=== PATIENT | male | born 1945 | race African-American/Black ===

== ENCOUNTER 2019-10-13 13:31 | Inpatient (IN) | payer OTHER, MEDICAID ==
[~2019-10-13] VITALS: Ht 175.3 cm; Wt 88.9 kg
[2019-10-13 14:08] VITALS: BP_SYST 153
[2019-10-13 16:29] LABS: BASOPHILS % (AUTO) 0.4 % (0.0-2.0); EOSINOPHILS # (AUTO) 0.2 K/uL (0.0-0.4); EOSINOPHILS % (AUTO) 2.1 % (0.0-4.0); HEMATOCRIT 41.5 % (36-54); HEMOGLOBIN 13.9 g/dL (14.0-18.0); LYMPHOCYTES % (AUTO) 35.6 % (20.5-51.5); MEAN CORPUSCULAR HEMOGLOBIN 33 pg (27-31); MEAN CORPUSCULAR HGB CONC 34 % (32-36); MEAN CORPUSCULAR VOLUME 99 fL (79.0-98.0); MONOCYTES # (AUTO) 0.6 K/uL (0.0-1.0); MONOCYTES % (AUTO) 7.5 % (1.7-9.3); NEUTROPHILS # (AUTO) 4.6 K/uL (1.8-7.7); NEUTROPHILS % (AUTO) 54.4 % (40.0-70.0); PLATELET COUNT (AUTO) 216 K/uL (130-430); RED BLOOD CELL COUNT(AUTO) 4.19 MIL/uL (4.2-6.2); RED CELL DISTRIBUTION WIDTH 15.3 % (9.0-15.0); WHITE BLOOD COUNT (AUTO) 8.4 K/uL (4.8-10.8)
[2019-10-13 16:30] LABS: ANION GAP 4 (5-15); CALCIUM 10.7 mg/dL (8.4-11.0); CHLORIDE 99 mmol/L (98-107); CREATININE 6.83 mg/dL (0.55-1.30); GLUCOSE 114 mg/dL (70-99); POTASSIUM 4.3 mmol/L (3.5-5.1); SODIUM SERUM 137 mmol/L (136-145); UREA NITROGEN, BLOOD 23 mg/dL (8-21)
[2019-10-13 16:34] LABS: PROTHROMBIN TIME 9.8 SECS (9.5-12.5)
[2019-10-13 16:45] LABS: ALANINE AMINOTRANSFERASE 18 U/L (12-78); ALBUMIN 3.4 g/dL (3.4-4.8); ASPARTATE AMINOTRANSFERASE 19 U/L (10-37); TOTAL BILIRUBIN 0.3 mg/dL (0.0-1.0)
[2019-10-13] MEDS ORDERED: VANCOMYCIN HCL 1,000 MG in NS 250 ML IV ONE (17:00)
[2019-10-13] MEDS ORDERED: NACL 0.9% 1,000 ML IV ONE (17:00)
[2019-10-13] MEDS ORDERED: VANCOMYCIN HCL 1000 MG/VIAL IV ONE (19:01)
[2019-10-13] MEDS ORDERED: ASPIRIN 81 MG TABLET(ECOTRIN) PO ONE (20:45)
[2019-10-13] MEDS ORDERED: HYDROmorphone 1 MG INJ. 1 MG/ML AMPUL IVP PRN (21:00)
[2019-10-13] MEDS ORDERED: ATORVASTATIN 20 MG TABLET PO SCH (21:00)
[2019-10-13] MEDS ORDERED: CLOPIDOGREL BISULFATE 75 MG TABLET PO SCH (21:15)
[2019-10-13] MEDS ORDERED: KETOROLAC TROMETHAMINE 30 MG VIAL IVP PRN (21:15)
[2019-10-13 21:44] VITALS: BP_SYST 151
[2019-10-13] MEDS: CLOPIDOGREL BISULFATE 75 MG TABLET PO SCH (22:15)
[2019-10-13] MEDS: ATORVASTATIN 20 MG TABLET PO SCH (22:16)
[2019-10-14 01:49] VITALS: BP_SYST 106
[2019-10-14 05:59] LABS: ANION GAP 7 (5-15); CALCIUM 9.8 mg/dL (8.4-11.0); CHLORIDE 100 mmol/L (98-107); GLUCOSE 84 mg/dL (70-99); SODIUM SERUM 138 mmol/L (136-145); UREA NITROGEN, BLOOD 26 mg/dL (8-21)
[2019-10-14 06:33] LABS: BASOPHILS % (AUTO) 0.5 % (0.0-2.0); EOSINOPHILS # (AUTO) 0.2 K/uL (0.0-0.4); HEMATOCRIT 36.5 % (36-54); HEMOGLOBIN 12.2 g/dL (14.0-18.0); LYMPHOCYTES # (AUTO) 2.7 K/uL (1.0-5.5); LYMPHOCYTES % (AUTO) 46.3 % (20.5-51.5); MEAN CORPUSCULAR HEMOGLOBIN 33 pg (27-31); MEAN CORPUSCULAR HGB CONC 34 % (32-36); MEAN CORPUSCULAR VOLUME 98 fL (79.0-98.0); MONOCYTES # (AUTO) 0.4 K/uL (0.0-1.0); MONOCYTES % (AUTO) 6.7 % (1.7-9.3); NEUTROPHILS # (AUTO) 2.5 K/uL (1.8-7.7); NEUTROPHILS % (AUTO) 42.5 % (40.0-70.0); PLATELET COUNT (AUTO) 215 K/uL (130-430); RED BLOOD CELL COUNT(AUTO) 3.74 MIL/uL (4.2-6.2); RED CELL DISTRIBUTION WIDTH 15.3 % (9.0-15.0); WHITE BLOOD COUNT (AUTO) 5.9 K/uL (4.8-10.8)
[2019-10-14 06:40] LABS: CREATININE 7.73 mg/dL (0.55-1.30)
[2019-10-14 07:03] LABS: C-REACTIVE PROTEIN QUANT 0.5 mg/dL (0-0.5)
[2019-10-14 08:00] VITALS: BP_SYST 121
[2019-10-14 08:16] LABS: ERYTHROCYTE SEDIMENTATION RATE 24 MM/HR (0-15)
[2019-10-14] MEDS: CLOPIDOGREL BISULFATE 75 MG TABLET PO SCH (08:41)
[2019-10-14] MEDS: ATORVASTATIN 20 MG TABLET PO SCH (08:41)
[2019-10-14] MEDS ORDERED: CLOPIDOGREL BISULFATE 75 MG TABLET PO SCH (10:30)
[2019-10-14 12:20] VITALS: BP_SYST 100
[2019-10-14 16:15] VITALS: BP_SYST 122
[2019-10-14 19:31] VITALS: BP_SYST 98
[2019-10-15 00:14] VITALS: BP_SYST 128
[2019-10-15 07:07] LABS: BASOPHILS % (AUTO) 0.4 % (0.0-2.0); EOSINOPHILS # (AUTO) 0.2 K/uL (0.0-0.4); EOSINOPHILS % (AUTO) 3.3 % (0.0-4.0); HEMATOCRIT 38.5 % (36-54); HEMOGLOBIN 12.8 g/dL (14.0-18.0); LYMPHOCYTES # (AUTO) 2.8 K/uL (1.0-5.5); LYMPHOCYTES % (AUTO) 41.1 % (20.5-51.5); MEAN CORPUSCULAR HEMOGLOBIN 33 pg (27-31); MEAN CORPUSCULAR HGB CONC 33 % (32-36); MEAN CORPUSCULAR VOLUME 99 fL (79.0-98.0); MONOCYTES # (AUTO) 0.5 K/uL (0.0-1.0); NEUTROPHILS # (AUTO) 3.3 K/uL (1.8-7.7); NEUTROPHILS % (AUTO) 48.2 % (40.0-70.0); PLATELET COUNT (AUTO) 207 K/uL (130-430); RED BLOOD CELL COUNT(AUTO) 3.91 MIL/uL (4.2-6.2); RED CELL DISTRIBUTION WIDTH 14.8 % (9.0-15.0); WHITE BLOOD COUNT (AUTO) 6.8 K/uL (4.8-10.8)
[2019-10-15 07:34] LABS: ANION GAP 4 (5-15); C-REACTIVE PROTEIN QUANT 0.9 mg/dL (0-0.5); CALCIUM 9.5 mg/dL (8.4-11.0); CHLORIDE 103 mmol/L (98-107); CREATININE 6.68 mg/dL (0.55-1.30); GLUCOSE 87 mg/dL (70-99); POTASSIUM 4.1 mmol/L (3.5-5.1); SODIUM SERUM 137 mmol/L (136-145); UREA NITROGEN, BLOOD 19 mg/dL (8-21); VANCOMYCIN,RANDOM 9.5 ug/mL
[2019-10-15 08:06] VITALS: BP_SYST 120
[2019-10-15] MEDS: ATORVASTATIN 20 MG TABLET PO SCH (08:57)
[2019-10-15] MEDS: CLOPIDOGREL BISULFATE 75 MG TABLET PO SCH (08:57)
[2019-10-15 10:35] LABS: ERYTHROCYTE SEDIMENTATION RATE 25 MM/HR (0-15)
[2019-10-15] MEDS ORDERED: VANCOMYCIN HCL 750 MG in NS 250 ML IV ONE (11:00)
[2019-10-15] MEDS ORDERED: VANCOMYCIN HCL 1,000 MG in NS 250 ML IV ONE (11:00)
[2019-10-15 12:14] VITALS: BP_SYST 141
[2019-10-15 12:24] VITALS: BP_SYST 141
== END 2019-10-15 16:45 | DRG 562 ==
LOC: SED 13:31 → STU 17:43 → SMU 10-15 14:29
PROVIDERS: ADMIT Internal Medicine; ATTEND Internal Medicine
PROC: 5A1D70Z Performance of Urinary Filtration, Intermittent, Less than 6 Hours Per Day (ICD-10-PCS; principal; 2019-10-14)
DX: S92.422A Displaced fracture of distal phalanx of left great toe, initial encounter for closed fracture (principal); N18.6 End stage renal disease; I12.0 Hypertensive chronic kidney disease with stage 5 chronic kidney disease or end stage renal disease; E11.22 Type 2 diabetes mellitus with diabetic chronic kidney disease; E11.42 Type 2 diabetes mellitus with diabetic polyneuropathy; X58.XXXA Exposure to other specified factors, initial encounter; L03.032 Cellulitis of left toe; E11.51 Type 2 diabetes mellitus with diabetic peripheral angiopathy without gangrene; Z79.4 Long term (current) use of insulin; Z87.891 Personal history of nicotine dependence; Z89.511 Acquired absence of right leg below knee; Z89.611 Acquired absence of right leg above knee; Z99.2 Dependence on renal dialysis; Z88.6 Allergy status to analgesic agent; Z88.8 Allergy status to other drugs, medicaments and biological substances; Y93.89 Activity, other specified; Y92.89 Other specified places as the place of occurrence of the external cause; Y99.8 Other external cause status
CPT/HCPCS: 36415; 71045; 80048; 80053; 80061; 80202-TC; 83036; 83605; 83735-TC; 84484; 85025; 85610-TC; 85651-TC; 85730-TC; 86140; 87040-TC; 87081; 90935; 93005; 93922; 96365; 96366; 99285; G0378; J3370; J7030; J7050

== ENCOUNTER 2019-11-16 07:36 | Emergency (ER) | payer OTHER, MEDICAID ==
[~2019-11-16] VITALS: Ht 177.8 cm; Wt 108.9 kg
[2019-11-16 07:36] VITALS: BP_SYST 133
--- NOTE | 2019-11-16 07:36 | NUR ---
Patient to ER bed 6 to gown for evaluation. Side rails up. Report given to ELPIDIO Downs.
--- NOTE | 2019-11-16 07:40 | NUR ---
Patient presents to ER C/O right DVT. Patient BIB BLS from [facility]. Patient A&Ox3, cap refill <3, pain 0/10, denies N/V/D. Patient states he has had intermittent pain 8/10-10/10 for 2 weeks to left great toe.
--- NOTE | 2019-11-16 07:53 | NUR ---
ER Dr. Fairchild at bedside examining patient.
--- NOTE | 2019-11-16 08:00 | NUR ---
Provider Calling: Dr. Stephanie Storm Reason for Call: Placed Call to Dr. Storm for Dr. Fairchild. Orders? Dr. Fairchild to order Comments: Does ER need to call back Provider? no
--- NOTE | 2019-11-16 08:30 | NUR ---
Radiology at bedside for portable x-rays.
[2019-11-16 09:21] LABS: BASOPHILS # (AUTO) 0.1 K/uL (0.0-0.2); BASOPHILS % (AUTO) 0.8 % (0.0-2.0); EOSINOPHILS # (AUTO) 0.2 K/uL (0.0-0.4); HEMATOCRIT 37.8 % (36-54); HEMOGLOBIN 12.8 g/dL (14.0-18.0); LYMPHOCYTES # (AUTO) 2.9 K/uL (1.0-5.5); LYMPHOCYTES % (AUTO) 37.9 % (20.5-51.5); MEAN CORPUSCULAR HEMOGLOBIN 34 pg (27-31); MEAN CORPUSCULAR HGB CONC 34 % (32-36); MEAN CORPUSCULAR VOLUME 99 fL (79.0-98.0); MONOCYTES # (AUTO) 0.5 K/uL (0.0-1.0); MONOCYTES % (AUTO) 6.3 % (1.7-9.3); NEUTROPHILS # (AUTO) 3.9 K/uL (1.8-7.7); PLATELET COUNT (AUTO) 370 K/uL (130-430); RED BLOOD CELL COUNT(AUTO) 3.83 MIL/uL (4.2-6.2); RED CELL DISTRIBUTION WIDTH 14.4 % (9.0-15.0); WHITE BLOOD COUNT (AUTO) 7.6 K/uL (4.8-10.8)
[2019-11-16 09:44] LABS: ANION GAP 4 (5-15); CALCIUM 9.5 mg/dL (8.4-11.0); CHLORIDE 96 mmol/L (98-107); GLUCOSE 80 mg/dL (70-99); POTASSIUM 4.4 mmol/L (3.5-5.1); SODIUM SERUM 134 mmol/L (136-145); UREA NITROGEN, BLOOD 22 mg/dL (8-21)
[2019-11-16 09:58] LABS: ALANINE AMINOTRANSFERASE 27 U/L (12-78); ALBUMIN 3.3 g/dL (3.4-4.8); ASPARTATE AMINOTRANSFERASE 21 U/L (10-37); TOTAL BILIRUBIN 0.6 mg/dL (0.0-1.0)
--- NOTE | 2019-11-16 11:37 | NUR ---
called [facility] for transport, spoke to Juan. 30 min ETA
--- NOTE | 2019-11-16 11:55 | NUR ---
Patient to be transpoerted home to [facility]. Report called to Guilherme MAGALLANES at receiving facility. [facility] service has been called for transfer. ETA is 30 min.
[2019-11-16 12:10] VITALS: BP_SYST 109
--- NOTE | 2019-11-16 12:10 | NUR ---
Patient given written and verbal discharge instructions and verbalizes understanding. ER MD discussed with patient the results and treatment provided. Patient in stable condition. ID arm band removed. No Rx given. Patient educated on pain management and to follow up with PMD. Pain Scale 0/10 . Opportunity for questions provided and answered. report given to Emilee Vanegas RN Sent via ambulance: [facility], report to Linda Mullins EMT
== END 2019-11-16 12:10 | disposition home or self-care (01) ==
LOC: SED 07:36
DX: M79.675 Pain in left toe(s) (principal); I10 Essential (primary) hypertension; Z86.73 Personal history of transient ischemic attack (TIA), and cerebral infarction without residual deficits; N28.9 Disorder of kidney and ureter, unspecified; Z88.6 Allergy status to analgesic agent; Z88.8 Allergy status to other drugs, medicaments and biological substances
CPT/HCPCS: 36415; 71045; 80053; 84484; 85025; 93005; 99284

== ENCOUNTER 2020-01-26 09:38 | Inpatient (IN) | payer OTHER, MEDICAID ==
[~2020-01-26] VITALS: Ht 172.7 cm; Wt 81.4 kg
[2020-01-26 09:47] VITALS: BP_SYST 147
[2020-01-26 10:46] LABS: BASOPHILS % (AUTO) 0.6 % (0.0-2.0); EOSINOPHILS # (AUTO) 0.1 K/uL (0.0-0.4); EOSINOPHILS % (AUTO) 1.6 % (0.0-4.0); LYMPHOCYTES # (AUTO) 2.2 K/uL (1.0-5.5); LYMPHOCYTES % (AUTO) 27.2 % (20.5-51.5); MEAN CORPUSCULAR HEMOGLOBIN 34 pg (27-31); MEAN CORPUSCULAR HGB CONC 33 % (32-36); MEAN CORPUSCULAR VOLUME 101 fL (79.0-98.0); MONOCYTES # (AUTO) 0.5 K/uL (0.0-1.0); MONOCYTES % (AUTO) 6.2 % (1.7-9.3); NEUTROPHILS # (AUTO) 5.2 K/uL (1.8-7.7); NEUTROPHILS % (AUTO) 64.4 % (40.0-70.0); PLATELET COUNT (AUTO) 305 K/uL (130-430); RED BLOOD CELL COUNT(AUTO) 3.87 MIL/uL (4.2-6.2); RED CELL DISTRIBUTION WIDTH 13.4 % (9.0-15.0); WHITE BLOOD COUNT (AUTO) 8.1 K/uL (4.8-10.8)
[2020-01-26 10:50] LABS: ANION GAP 7 (5-15); CHLORIDE 101 mmol/L (98-107); CREATININE 4.79 mg/dL (0.55-1.30); GLUCOSE 94 mg/dL (70-99); POTASSIUM 3.7 mmol/L (3.5-5.1); SODIUM SERUM 140 mmol/L (136-145); UREA NITROGEN, BLOOD 12 mg/dL (8-21)
[2020-01-26 11:00] LABS: ALANINE AMINOTRANSFERASE 18 U/L (12-78); ALBUMIN 2.6 g/dL (3.4-4.8); ASPARTATE AMINOTRANSFERASE 20 U/L (10-37); TOTAL BILIRUBIN 0.3 mg/dL (0.0-1.0)
[2020-01-26 11:07] LABS: PROTHROMBIN TIME 10.5 SECS (9.5-12.5)
[2020-01-26] MEDS ORDERED: ACET325C3 PO (11:57)
[2020-01-26] MEDS ORDERED: DOCU-144 PO (11:58)
[2020-01-26] MEDS ORDERED: ASCO500T20 PO (11:58)
[2020-01-26] MEDS ORDERED: CARV6.2554 PO (11:58)
[2020-01-26] MEDS ORDERED: LIP20 PO (11:58)
[2020-01-26] MEDS ORDERED: ASPI-1153 PO (11:58)
[2020-01-26] MEDS ORDERED: SULF1TAB48 PO (11:58)
[2020-01-26] MEDS ORDERED: traMADol HCL HCL 50 MG TABLET (ULTRAM) PO ONE ×2 (12:00)
[2020-01-26] MEDS ORDERED: GUAI10LI PO (12:02)
[2020-01-26] MEDS ORDERED: GABA800T PO (12:02)
[2020-01-26] MEDS ORDERED: HYDR-4038 PO (12:02)
[2020-01-26] MEDS ORDERED: BISA-79 PO (12:02)
[2020-01-26] MEDS ORDERED: INSU100V9 SQ (12:09)
[2020-01-26] MEDS ORDERED: LISI-600 PO (12:09)
[2020-01-26] MEDS ORDERED: CLOP75TA32 PO (12:09)
[2020-01-26] MEDS ORDERED: HYDR-4274 PO (12:09)
[2020-01-26] MEDS ORDERED: B CO1CAP5 PO (12:09)
[2020-01-26] MEDS ORDERED: SSNOVOLOG SUBCUT (12:09)
[2020-01-26] MEDS ORDERED: NIFE60TA65 PO (12:09)
[2020-01-26] MEDS ORDERED: LACT1CAP61 PO (12:09)
[2020-01-26] MEDS ORDERED: SENN8.6T19 PO (12:18)
[2020-01-26] MEDS ORDERED: DICL100G19 TP (12:18)
[2020-01-26] MEDS ORDERED: RESEYE OP (12:18)
[2020-01-26] MEDS ORDERED: TRAM-350 PO (12:18)
[2020-01-26] MEDS ORDERED: SEVE800T8 PO (12:18)
[2020-01-26] MEDS ORDERED: KETOROLAC TROMETHAMINE 30 MG VIAL IVP ONE ×2 (13:00)
[2020-01-26 13:12] VITALS: BP_SYST 151
[2020-01-26] MEDS ORDERED: VANCOMYCIN HCL 1,000 MG in NS 250 ML IV ONE (14:00)
[2020-01-26 17:06] VITALS: BP_SYST 111
[2020-01-26 20:00] VITALS: BP_SYST 117
[2020-01-26] MEDS ORDERED: INSULIN LISPRO SLIDING SCALE 100 UNITS/ML VIAL (humaLOG) SUBCUT PRN (21:15)
[2020-01-26] MEDS ORDERED: BISACODYL 5 MG TABLET.DR (DULCOLAX) PO SCH (21:30)
[2020-01-26] MEDS ORDERED: hydrALAZINE HCL 25 MG TABLET PO SCH (21:30)
[2020-01-26] MEDS: GABAPENTIN 400 MG CAPSULE PO SCH (22:00)
[2020-01-27 00:46] VITALS: BP_SYST 147
[2020-01-27] MEDS: GABAPENTIN 400 MG CAPSULE PO SCH ×3 (05:47→21:14)
[2020-01-27 08:27] VITALS: BP_SYST 139
[2020-01-27] MEDS: SEVELAMER CARBONATE 800 MG TABLET PO SCH ×2 (08:59→18:00)
[2020-01-27] MEDS ORDERED: HEPARIN SODIUM,PORCINE 5000 UNITS/ML VIAL MC ONE ×2 (11:19→11:30)
[2020-01-27] MEDS: HEPARIN SODIUM,PORCINE 5000 UNITS/ML VIAL SUBCUT SCH ×2 (11:50→21:17)
[2020-01-27] MEDS: DOCUSATE SODIUM 100 MG CAPSULE PO SCH (11:51)
[2020-01-27] MEDS: ASCORBIC ACID 500 MG TABLET PO SCH (11:53)
[2020-01-27] MEDS: SENNOSIDES 8.6 MG TABLET PO SCH ×3 (11:53→21:15)
[2020-01-27] MEDS: CARVEDILOL 6.25 MG TABLET (COREG) PO SCH ×2 (11:54→21:15)
[2020-01-27] MEDS: LISINOPRIL 20 MG TABLET PO SCH (11:55)
[2020-01-27] MEDS: NIFEDIPINE 30 MG TAB.ER.24 PO SCH (11:55)
[2020-01-27] MEDS: cycloSPORINE 0.05%, 0.4 ML OPHTHALMIC EMULSION DROPERETTE OP SCH (11:58)
[2020-01-27 12:24] VITALS: BP_SYST 100
[2020-01-27 16:44] VITALS: BP_SYST 120
[2020-01-27 19:00] VITALS: BP_SYST 120
[2020-01-27 20:00] VITALS: BP_SYST 120
[2020-01-27] MEDS ORDERED: ATORVASTATIN 20 MG TABLET PO SCH (21:00)
[2020-01-28 00:59] VITALS: BP_SYST 105
[2020-01-28] MEDS: GABAPENTIN 400 MG CAPSULE PO SCH ×3 (05:57→13:53)
[2020-01-28 08:31] LABS: BASOPHILS % (AUTO) 0.3 % (0.0-2.0); EOSINOPHILS # (AUTO) 0.3 K/uL (0.0-0.4); EOSINOPHILS % (AUTO) 3.7 % (0.0-4.0); HEMATOCRIT 35.1 % (36-54); HEMOGLOBIN 11.7 g/dL (14.0-18.0); LYMPHOCYTES # (AUTO) 2.1 K/uL (1.0-5.5); LYMPHOCYTES % (AUTO) 27.7 % (20.5-51.5); MEAN CORPUSCULAR HEMOGLOBIN 33 pg (27-31); MEAN CORPUSCULAR HGB CONC 33 % (32-36); MEAN CORPUSCULAR VOLUME 100 fL (79.0-98.0); MONOCYTES # (AUTO) 0.6 K/uL (0.0-1.0); NEUTROPHILS # (AUTO) 4.6 K/uL (1.8-7.7); NEUTROPHILS % (AUTO) 60.3 % (40.0-70.0); PLATELET COUNT (AUTO) 278 K/uL (130-430); RED BLOOD CELL COUNT(AUTO) 3.52 MIL/uL (4.2-6.2); RED CELL DISTRIBUTION WIDTH 13.2 % (9.0-15.0); WHITE BLOOD COUNT (AUTO) 7.6 K/uL (4.8-10.8)
[2020-01-28] MEDS: SEVELAMER CARBONATE 800 MG TABLET PO SCH (08:44)
[2020-01-28 08:47] LABS: ANION GAP 7 (5-15); CALCIUM 9.4 mg/dL (8.4-11.0); CHLORIDE 103 mmol/L (98-107); CREATININE 5.22 mg/dL (0.55-1.30); GLUCOSE 94 mg/dL (70-99); POTASSIUM 3.2 mmol/L (3.5-5.1); SODIUM SERUM 134 mmol/L (136-145); UREA NITROGEN, BLOOD 12 mg/dL (8-21); VANCOMYCIN,RANDOM 9.5 ug/mL
[2020-01-28 08:49] VITALS: BP_SYST 112
[2020-01-28] MEDS: LISINOPRIL 20 MG TABLET PO SCH (09:33)
[2020-01-28] MEDS: NIFEDIPINE 30 MG TAB.ER.24 PO SCH (09:33)
[2020-01-28] MEDS: ASCORBIC ACID 500 MG TABLET PO SCH (09:34)
[2020-01-28] MEDS: SENNOSIDES 8.6 MG TABLET PO SCH ×2 (09:34→14:02)
[2020-01-28] MEDS: DOCUSATE SODIUM 100 MG CAPSULE PO SCH (09:34)
[2020-01-28] MEDS: CARVEDILOL 6.25 MG TABLET (COREG) PO SCH (09:34)
[2020-01-28] MEDS: HEPARIN SODIUM,PORCINE 5000 UNITS/ML VIAL SUBCUT SCH (09:36)
[2020-01-28] MEDS: cycloSPORINE 0.05%, 0.4 ML OPHTHALMIC EMULSION DROPERETTE OP SCH (09:42)
[2020-01-28 12:44] VITALS: BP_SYST 114
[2020-01-28] MEDS ORDERED: POTASSIUM CHLORIDE 20 MEQ/PKT PACKET PO ONE (13:30)
[2020-01-28] MEDS ORDERED: POTASSIUM CHLORIDE 20 MEQ TAB.PRT.SR PO ONE (13:30)
[2020-01-28] MEDS ORDERED: VANCOMYCIN HCL 1,000 MG in NS 250 ML IV ONE (14:00)
[2020-01-28 16:00] VITALS: BP_SYST 115
== END 2020-01-28 16:12 | DRG 637 ==
LOC: SED 09:38 → SMU 13:46
PROVIDERS: ADMIT Internal Medicine; ATTEND Internal Medicine
PROC: 5A1D70Z Performance of Urinary Filtration, Intermittent, Less than 6 Hours Per Day (ICD-10-PCS; principal; 2020-01-27)
DX: E11.621 Type 2 diabetes mellitus with foot ulcer (principal); E43 Unspecified severe protein-calorie malnutrition; E11.52 Type 2 diabetes mellitus with diabetic peripheral angiopathy with gangrene; L97.429 Non-pressure chronic ulcer of left heel and midfoot with unspecified severity; I96 Gangrene, not elsewhere classified; I12.0 Hypertensive chronic kidney disease with stage 5 chronic kidney disease or end stage renal disease; N18.6 End stage renal disease; E11.22 Type 2 diabetes mellitus with diabetic chronic kidney disease; E11.40 Type 2 diabetes mellitus with diabetic neuropathy, unspecified; E78.5 Hyperlipidemia, unspecified; F17.210 Nicotine dependence, cigarettes, uncomplicated; M19.90 Unspecified osteoarthritis, unspecified site; E11.42 Type 2 diabetes mellitus with diabetic polyneuropathy; Z79.4 Long term (current) use of insulin; Z99.2 Dependence on renal dialysis; Z79.899 Other long term (current) drug therapy; Z89.511 Acquired absence of right leg below knee; Z88.8 Allergy status to other drugs, medicaments and biological substances; Z88.5 Allergy status to narcotic agent
CPT/HCPCS: 36415; 71045; 80048; 80053; 80202-TC; 82140-TC; 82962; 83605; 83880; 84439; 84484; 85025; 85610-TC; 87040-TC; 87081; 90935; 93005; 93922; 99285; J0696; J1644; J3370; J7030; J7050; J7060

== ENCOUNTER 2020-03-02 01:12 | Inpatient (IN) | payer OTHER, MEDICAID, SELFPAY ==
[2020-03-02] VITALS (20 sets, daily range): BP systolic 94–188
[~2020-03-02] VITALS: Ht 180.3 cm; Wt 72.6 kg
[~2020-03-02 01:12] MED LIST: ACET325C3 PO; ASCO500T20 PO; ASPI-1153 PO; B CO1CAP5 PO; BISA-79 PO; CARV6.2554 PO; CLOP75TA32 PO; DICL100G19 TP; DOCU-144 PO; GABA800T PO; GUAI10LI PO; HYDR-4038 PO; HYDR-4274 PO; INSU100V9 SQ; LACT1CAP61 PO; LIP20 PO; LISI-600 PO; NIFE60TA65 PO; RESEYE OP; SENN8.6T19 PO; SEVE800T8 PO; SSNOVOLOG SUBCUT; TRAM-350 PO
--- NOTE | 2020-03-02 01:20 | NUR ---
Placed in room 6 . Placed on youth nutritional monitor, blood pressure machine and pulse oximeter. To gown for exam. Side rails up. Report given to ALEXIA MAGALLANES/CAMRON MAGALLANES.
[2020-03-02] MEDS ORDERED: DEXTROSE 50% JECT 50 ML DISP.SYRIN IVP ONE (01:30)
--- NOTE | 2020-03-02 01:30 | NUR ---
Patient BIB EMS. C/O hypoglycemia x today. Per EMS reported staff found patient unconscious, called 911, BS 34 at the scene, given Glucagon 1 GM IM. Awake, confused, reponse to pain, BS 42, permacath right chest, AKA right side, left foot gangrene, cool, clammy , AV shut left upper arm, HR 54, Oxygen sat 88 % RA. Hx DM,ESRD, Osteoarthritis, HTN, Peripheral neuropathy.
--- NOTE | 2020-03-02 01:48 | NUR ---
X-ray at bedside.
--- NOTE | 2020-03-02 01:53 | NUR ---
BS 298, report Dr. Kwan.
[2020-03-02] MEDS ORDERED: NS 500 ML IV ONE (02:00)
[2020-03-02 02:03] LABS: BASOPHILS % (AUTO) 0.3 % (0.0-2.0); EOSINOPHILS # (AUTO) 0.1 K/uL (0.0-0.4); EOSINOPHILS % (AUTO) 1.5 % (0.0-4.0); HEMATOCRIT 37.5 % (36-54); HEMOGLOBIN 12.6 g/dL (14.0-18.0); LYMPHOCYTES # (AUTO) 1.2 K/uL (1.0-5.5); LYMPHOCYTES % (AUTO) 15.2 % (20.5-51.5); MEAN CORPUSCULAR HEMOGLOBIN 33 pg (27-31); MEAN CORPUSCULAR HGB CONC 34 % (32-36); MEAN CORPUSCULAR VOLUME 99 fL (79.0-98.0); MONOCYTES # (AUTO) 0.6 K/uL (0.0-1.0); MONOCYTES % (AUTO) 7.9 % (1.7-9.3); NEUTROPHILS # (AUTO) 6.1 K/uL (1.8-7.7); NEUTROPHILS % (AUTO) 75.1 % (40.0-70.0); PLATELET COUNT (AUTO) 497 K/uL (130-430); RED CELL DISTRIBUTION WIDTH 14.7 % (9.0-15.0); WHITE BLOOD COUNT (AUTO) 8.1 K/uL (4.8-10.8)
--- NOTE | 2020-03-02 02:05 | NUR ---
at bedside -re-evaluate, Temp 94.[address] Kwan, Oxygen sat 88 % RA, given oxygen canula 4 L/min per verbal order.
--- NOTE | 2020-03-02 02:05 | NUR ---
Note dale in ED - 03/02/20 at 0605 by SDEDCM2 at [facility] -re-evaluate, Temp 94.[address] Kwan, Oxygen sat 88 % RA, given oxygen canula 4 L/min.
[2020-03-02 02:20] LABS: ANION GAP 6 (5-15); CALCIUM 9.4 mg/dL (8.4-11.0); CHLORIDE 102 mmol/L (98-107); CREATININE 7.36 mg/dL (0.55-1.30); GLUCOSE 63 mg/dL (70-99); POTASSIUM 3.4 mmol/L (3.5-5.1); SODIUM SERUM 140 mmol/L (136-145); UREA NITROGEN, BLOOD 24 mg/dL (8-21)
[2020-03-02 02:22] LABS: INR 1.1 (0.80-1.20); PROTHROMBIN TIME 10.9 SECS (9.5-12.5)
[2020-03-02] MEDS ORDERED: VANCOMYCIN HCL 1,000 MG in NS 250 ML IV ONE (02:30)
[2020-03-02] MEDS ORDERED: PIPERACILLIN/TAZOBACTAM 2.25 GM in NS 50 ML IV ONE (02:30)
[2020-03-02 02:33] LABS: ALANINE AMINOTRANSFERASE 11 U/L (12-78); ALBUMIN 2.3 g/dL (3.4-4.8); ASPARTATE AMINOTRANSFERASE 22 U/L (10-37); TOTAL BILIRUBIN 0.4 mg/dL (0.0-1.0)
[2020-03-02] MEDS ORDERED: NACL 0.9% 1,000 ML IV ONE (02:45)
--- NOTE | 2020-03-02 02:48 | NUR ---
Dr. Kwan at bedside for Ultrasound.
[2020-03-02] MEDS ORDERED: VANCOMYCIN HCL 1000 MG/VIAL IV ONE (02:59)
[2020-03-02] MEDS ORDERED: PIPERACILLIN/TAZOBACTAM 2.25 GM VIAL IV ONE (02:59)
--- NOTE | 2020-03-02 03:00 | NUR ---
BS 229 , reported Dr. Kwan.
[2020-03-02] MEDS ORDERED: TRAM100T34 PO (03:31)
[2020-03-02] MEDS ORDERED: GUAI100S14 PO (03:31)
[2020-03-02] MEDS ORDERED: BISA10SU61 RC (03:31)
[2020-03-02] MEDS ORDERED: MOM PO (03:31)
--- NOTE | 2020-03-02 03:32 | NUR ---
Medication reconciliation completed with information provided by GEOVANY PITTMAN. Any prior medication reconciliation on file was reviewed and corrected.
--- NOTE | 2020-03-02 03:42 | NUR ---
Spoke to pipe supervisor, They advised , patient will be ER hold , pending staff in ICU.
--- NOTE | 2020-03-02 04:58 | NUR ---
Patient will be admitted to care of Dr. Storm. Admitted to ICU unit. Will go to room 2. Belongings list completed. Complete and up to date summary report printed. SBAR report to be given at bedside with opportunity for questions.
--- NOTE | 2020-03-02 05:01 | NUR ---
Transfer to ICU via ACLS protocol. Licensed nurse present. IV present no signs or symptoms of infiltration.
--- NOTE | 2020-03-02 05:30 | NUR ---
OPENING NOTE ER ADMIT. SBAR REPORT RECEIVED FROM JIGGER ARTISAN. CARE ASSUMED. PT LAYING IN BED. PT ANO X 4. PT ON 4L NC. O2 SATURATION 97%. SINUS BRADYCARDIA ON MONITOR. RADIAL PULSES NORMAL. LEFT PEDAL PULSES NORMAL. PT HAS BKA TO RIGHT LOWER EXTREMITY. PT HAS 20G RIGHT AC RUNNING VANCOMYCIN FROM ER. ABDOMEN SOFT NON DISTENDED. BOWEL SOUNDS ACTIVE IN ALL 4 QUADRANTS. PT INCONTINENT OF URINE. PT HAS NECROTIC ULCER TO LEFT GREAT TOE. RIGHT BKA. HEALED WOUND TO SACRAL AREA. BED LOCKED IN LOWEST POSITION. SAFETY PRECAUTIONS IN PLACE. CALL LIGHT WITHIN REACH. WILL CONTINUE TO MONITOR.
--- NOTE | 2020-03-02 06:09 | NUR ---
CONSULT FOR DR. Robbie SABILLON ORDERED BY DR. IGLESIAS DIALED: [phone] SPOKE TO: AMY
--- NOTE | 2020-03-02 06:13 | NUR ---
CONSULT FOR DR. BRAUN ORDERED BY DR. IGLESIAS DIALED: [phone] SPOKE TO: TUAN
[2020-03-02] MEDS ORDERED: NACL 0.9% 1,000 ML IV SCH (06:30)
--- NOTE | 2020-03-02 06:45 | NUR ---
RN UPDATE PT LAYING IN BED NO SIGNS OR SYMPTOMS OF DISTRESS. AWAITING COMPLETE ADMIT ORDERS FROM MD IGLESIAS. WILL CONTINUE TO MONITOR.
--- NOTE | 2020-03-02 07:15 | NUR ---
Received endorsement from Marianne CAMARA
[2020-03-02 07:23] LABS: BASOPHILS % (AUTO) 0.3 % (0.0-2.0); EOSINOPHILS % (AUTO) 0.4 % (0.0-4.0); HEMATOCRIT 38.5 % (36-54); HEMOGLOBIN 12.6 g/dL (14.0-18.0); LYMPHOCYTES # (AUTO) 1.3 K/uL (1.0-5.5); MEAN CORPUSCULAR HEMOGLOBIN 33 pg (27-31); MEAN CORPUSCULAR HGB CONC 33 % (32-36); MEAN CORPUSCULAR VOLUME 99 fL (79.0-98.0); MONOCYTES # (AUTO) 0.6 K/uL (0.0-1.0); MONOCYTES % (AUTO) 8.4 % (1.7-9.3); NEUTROPHILS # (AUTO) 4.9 K/uL (1.8-7.7); NEUTROPHILS % (AUTO) 71.9 % (40.0-70.0); PLATELET COUNT (AUTO) 335 K/uL (130-430); RED BLOOD CELL COUNT(AUTO) 3.88 MIL/uL (4.2-6.2); RED CELL DISTRIBUTION WIDTH 15.2 % (9.0-15.0); WHITE BLOOD COUNT (AUTO) 6.7 K/uL (4.8-10.8)
--- NOTE | 2020-03-02 07:30 | NUR ---
CLOSING NOTE PT LAYING IN BED. NO SIGNS OR SYMPTOMS OF DISTRESS NOTED. SBAR REPORT GIVEN TO YOUNG RN. CARE ENDORSED.
--- NOTE | 2020-03-02 08:15 | NUR ---
AM ASSESSMENT Placed patient on droplet (PUI) isolation. Pt lethargic A/O x 4 but awakens to verbal stimuli. PT noted that he receives dialysis M,W,F. Confirmed with Emilee Chanel Via DR. Guzman. Pt BNA on right let. Necrotic tissue on #1, #2 Toe. Sacrum old scar but intact. No complaints of pain but is complaining of being cold. Temp of 96.1F noted. Applied three layers of warm blankets. NS @ 75cc/hr.
--- NOTE | 2020-03-02 08:16 | NUR ---
Nutrition Update Saúl Score 13 noted. Pt admitted for sepsis & hypotension Diet: N/A BMI: 25.1 kg/m2 RD to follow per nutrition care standards. Addendum: 03/02/20 at [address] Correction: Diet: Renal Standard
--- NOTE | 2020-03-02 08:20 | NUR ---
PAGED PAGED CAMERON BILLS AT [phone] LEFT A VOICEMAIL.
[2020-03-02 08:55] LABS: CHLORIDE 102 mmol/L (98-107); SODIUM SERUM 133 mmol/L (136-145)
[2020-03-02 08:56] LABS: ANION GAP 7 (5-15); CALCIUM 8.5 mg/dL (8.4-11.0); CREATININE 7.42 mg/dL (0.55-1.30); GLUCOSE 201 mg/dL (70-99); UREA NITROGEN, BLOOD 26 mg/dL (8-21)
[2020-03-02 08:57] LABS: ALANINE AMINOTRANSFERASE 11 U/L (12-78); ASPARTATE AMINOTRANSFERASE 21 U/L (10-37); TOTAL BILIRUBIN 0.4 mg/dL (0.0-1.0)
[2020-03-02 08:58] LABS: CHOLESTEROL 50 mg/dL (<200); TRIGLYCERIDES 18 mg/dL (30-150)
[2020-03-02 08:59] LABS: HDL CHOLESTEROL 35 mg/dL (>45); LDL CHOLESTEROL 13 mg/dL (<100); LIPASE 320 U/L (73-393)
--- NOTE | 2020-03-02 09:00 | NUR ---
Placed allergy band on PT
[2020-03-02] MEDS ORDERED: ENOXAPARIN SODIUM 30 MG/0.3 ML SYRINGE SUBCUT ONE (09:15)
[2020-03-02 09:35] LABS: THYROID STIMULATING HORMONE 1.62 uIu/mL (0.34-4.82)
--- NOTE | 2020-03-02 10:00 | NUR ---
Dr Storm bedside. Orders received.
[2020-03-02] MEDS: PIPERACILLIN/TAZOBACTAM 2.25 GM in NS 50 ML IV SCH ×3 (10:16→19:14)
[2020-03-02] MEDS ORDERED: cycloSPORINE 0.05%, 0.4 ML OPHTHALMIC EMULSION DROPERETTE OP ONE (10:30)
[2020-03-02] MEDS ORDERED: CLOPIDOGREL BISULFATE 75 MG TABLET PO ONE (10:30)
[2020-03-02] MEDS ORDERED: DOCUSATE SODIUM 100 MG CAPSULE PO ONE (10:30)
[2020-03-02] MEDS ORDERED: ASCORBIC ACID 500 MG TABLET PO ONE (10:30)
[2020-03-02] MEDS ORDERED: ASPIRIN 81 MG TABLET(ECOTRIN) PO ONE (10:30)
[2020-03-02] MEDS ORDERED: BISACODYL 10 MG/SUPPOSITORY RC ONE (10:30)
--- NOTE | 2020-03-02 10:30 | NUR ---
Dr Ember Mojica bedside. Orders received.
[2020-03-02] MEDS ORDERED: GABAPENTIN 400 MG CAPSULE PO ONE (11:00)
--- NOTE | 2020-03-02 11:00 | NUR ---
Pt has CT w/o contrast of chest ordered. Advised by Dr Storm to coordinate with radiology to once PUI is complete. Confirmed with Bill at Radiology.
[2020-03-02] MEDS ORDERED: D5/0.45 NS 500 ML IV ONE (11:15)
[2020-03-02] MEDS: D5/0.45 NS 1,000 ML IV SCH (11:44)
[2020-03-02] MEDS: FAMOTIDINE PF 20 MG/2 ML VIAL IVP SCH (11:45)
[2020-03-02] MEDS: SEVELAMER CARBONATE 800 MG TABLET PO SCH ×2 (13:29→17:33)
--- NOTE | 2020-03-02 13:43 | NUR ---
Section Crews Activities Clerk: CASEWORK SUPERVISOR will make a call to ICU to conduct a DCPA and a Social Work interview CASEWORK SUPERVISOR called the two emergency contacts on the pts. facesheet, Delia Langley, daughter, at [phone] and pts. sister, Corry Odell at [phone]. There was no answer. CASEWORK SUPERVISOR called ICU and spoke to [employer] Blane and asked if Pt. was able to participate in an interview. CASEWORK SUPERVISOR stated if he was not able to that was ok. Blane consulted with Rn. After discussion, they were able to transfer phone call to Pt. Pt. was able to get through part of the DCPA however his Rn Gabriel got on the phone and stated pt. needed to rest. CASEWORK SUPERVISOR thanked him. CASEWORK SUPERVISOR tried called pts. sister, Sabas Odell again. She answered and was able to share some answers to CASEWORK SUPERVISOR's questions.She was very polite and helped with the rest of the assessment questions. She stated the plan was for pt. to return to [facility] once he is d/c. She stated they were trying to get him to a SNF closer to her. She resides in [place], however pt. did not want to go out to [place] at the time. Corry Odell expressed frustration stating she has been asking to speak to a DrGer in re. to pts. care and she has yet to do so. CASEWORK SUPERVISOR suggested she call the compliance representative dealer and ask to speak to a Rn or Dr. She stated she will try again. CASEWORK SUPERVISOR will remain available as needed.
--- NOTE | 2020-03-02 14:02 | NUR ---
HEALTH ASSISTANT ANDREW THE HEALTH ASSISTANT INFORMED ME THAT THE PATIENT'S SISTER WANTS TO SPEAK TO EITHER THE DOCTOR OR NURSE TO GET AN UPDATE ON THE PATIENTS STATUS.
--- NOTE | 2020-03-02 14:19 | NUR ---
SAÚL SCALE EVALUATION: Patient evaluated for a low Saúl score of 13. Patient was awake, alert, oriented and received in a Jason bed with an IsoFlex RYAN mattress with low air-loss therapy. Patient is unable to turn in bed independently. Skin assessment: 1. Sacral area: Scar tissue, present on admission. Recommend: Cover site with a Sacral foam dressing. Do not place patient flat on his back at any time. 2. Left Great Toe: Dry gangrene, present on admission. Site has 100% black eschar. No odor, no drainage. Dry, stable. Recommend: [place] gangrenous site with Betadine daily. Recommend reposition patient side to side only every 2 hours with pillow support and off-load pressure areas with pillows for pressure re-distribution. Elevate, off-load and float left heel and right residual limb with pillows. Use moisture barrier cream on buttocks and other moisture susceptible areas QID and as needed for soiling. Perform skin care and monitor skin integrity Q shift. Maintain patient on a low air-loss mattress.
[2020-03-02] MEDS ORDERED: HEPARIN SODIUM,PORCINE 5000 UNITS/ML VIAL MC ONE (16:15)
[2020-03-02] MEDS ORDERED: HEPARIN SODIUM,PORCINE 5000 UNITS/ML VIAL ONE (16:24)
[2020-03-02] MEDS ORDERED: VANCOMYCIN HCL 1 GM/NS PREMIX 250 ML IV ONE (18:30)
--- NOTE | 2020-03-02 20:00 | NUR ---
PAGED DR. IGLESIAS FOR ORDERS DIALED: [phone] (NO ANSWER LEFT VOICEMAIL) DIALED SECOND NUMBER: [phone] SPOKE TO: CUONG
--- NOTE | 2020-03-02 20:52 | NUR ---
PAGED DR. IGLESIAS FOR ORDERS DIALED: [phone] SPOKE TO: NO ANSWER
--- NOTE | 2020-03-02 21:28 | NUR ---
PAGED DR. IGLESIAS FOR ORDERS DIALED: [phone] (NO ANSWER LEFT VOICEMAIL) DIALED SECOND NUMBER: [phone] (NO ANSWER LEFT VOICEMAIL)
[2020-03-02] MEDS: ATORVASTATIN 20 MG TABLET PO SCH (21:37)
[2020-03-02] MEDS: GABAPENTIN 400 MG CAPSULE PO SCH (21:38)
[2020-03-02] MEDS: hydrALAZINE HCL 25 MG TABLET PO SCH (21:38)
[2020-03-02] MEDS: SENNOSIDES 8.6 MG TABLET PO SCH (21:38)
[2020-03-03] VITALS (14 sets, daily range): BP systolic 106–176
--- NOTE | 2020-03-03 00:30 | NUR ---
Endorsement provided to night RN using SBAR. Pt sleeping with no signs of distress. Bed locked and in lowest position. PT under droplet precautions.
--- NOTE | 2020-03-03 01:00 | NUR ---
CHANGE IN CARE Care assumed from Day RN. Pt resting quietly. No c/o SOB, or pain.
[2020-03-03] MEDS: PIPERACILLIN/TAZOBACTAM 2.25 GM in NS 50 ML IV SCH ×4 (03:01→21:00)
--- NOTE | 2020-03-03 04:30 | NUR ---
Opening Note Received plan of care via sbar from endorsing nurse Marina MAGALLANES. Completed patient round.
[2020-03-03 05:52] LABS: BASOPHILS # (AUTO) 0.1 K/uL (0.0-0.2); BASOPHILS % (AUTO) 0.6 % (0.0-2.0); EOSINOPHILS # (AUTO) 0.1 K/uL (0.0-0.4); EOSINOPHILS % (AUTO) 0.8 % (0.0-4.0); HEMATOCRIT 33.2 % (36-54); HEMOGLOBIN 11.1 g/dL (14.0-18.0); LYMPHOCYTES # (AUTO) 1.5 K/uL (1.0-5.5); LYMPHOCYTES % (AUTO) 15.7 % (20.5-51.5); MEAN CORPUSCULAR HEMOGLOBIN 32 pg (27-31); MEAN CORPUSCULAR HGB CONC 34 % (32-36); MEAN CORPUSCULAR VOLUME 96 fL (79.0-98.0); MONOCYTES # (AUTO) 0.5 K/uL (0.0-1.0); MONOCYTES % (AUTO) 5.4 % (1.7-9.3); NEUTROPHILS # (AUTO) 7.5 K/uL (1.8-7.7); NEUTROPHILS % (AUTO) 77.5 % (40.0-70.0); PLATELET COUNT (AUTO) 315 K/uL (130-430); RED BLOOD CELL COUNT(AUTO) 3.45 MIL/uL (4.2-6.2); RED CELL DISTRIBUTION WIDTH 14.7 % (9.0-15.0); WHITE BLOOD COUNT (AUTO) 9.7 K/uL (4.8-10.8)
[2020-03-03] MEDS: GABAPENTIN 400 MG CAPSULE PO SCH (06:00)
[2020-03-03 06:10] LABS: ALANINE AMINOTRANSFERASE 8 U/L (12-78); ALBUMIN 1.7 g/dL (3.4-4.8); ANION GAP 5 (5-15); ASPARTATE AMINOTRANSFERASE 16 U/L (10-37); CALCIUM 8.1 mg/dL (8.4-11.0); CHLORIDE 100 mmol/L (98-107); CREATININE 4.98 mg/dL (0.55-1.30); GLUCOSE 70 mg/dL (70-99); PHOSPHORUS 2.3 mg/dL (2.7-4.5); POTASSIUM 3.1 mmol/L (3.5-5.1); SODIUM SERUM 133 mmol/L (136-145); TOTAL BILIRUBIN 0.4 mg/dL (0.0-1.0); UREA NITROGEN, BLOOD 14 mg/dL (8-21)
[2020-03-03] MEDS: D5/0.45 NS 1,000 ML IV SCH ×2 (06:15→22:09)
--- NOTE | 2020-03-03 06:30 | NUR ---
Patient blood sugar 66. Patient is still responsive and AOX4. Following hypoglycemic protocol.
[2020-03-03] MEDS ORDERED: D5W 1,000 ML IV PRN ×2 (06:44)
[2020-03-03] MEDS ORDERED: GLUCOSE 15 GM GEL (in 37.5 GM TUBE) PO PRN ×2 (06:45)
[2020-03-03] MEDS ORDERED: DEXTROSE 50% JECT 50 ML DISP.SYRIN IVP PRN ×2 (06:45)
[2020-03-03] MEDS: cycloSPORINE 0.05%, 0.4 ML OPHTHALMIC EMULSION DROPERETTE OP SCH (09:02)
[2020-03-03] MEDS: DOCUSATE SODIUM 100 MG CAPSULE PO SCH (09:02)
[2020-03-03] MEDS: CLOPIDOGREL BISULFATE 75 MG TABLET PO SCH (09:02)
[2020-03-03] MEDS: SEVELAMER CARBONATE 800 MG TABLET PO SCH ×3 (09:03→16:25)
[2020-03-03] MEDS: ASPIRIN 81 MG TABLET(ECOTRIN) PO SCH (09:03)
[2020-03-03] MEDS: ASCORBIC ACID 500 MG TABLET PO SCH (09:04)
[2020-03-03] MEDS: BISACODYL 10 MG/SUPPOSITORY RC SCH (09:04)
[2020-03-03] MEDS: ENOXAPARIN SODIUM 30 MG/0.3 ML SYRINGE SUBCUT SCH (09:04)
[2020-03-03] MEDS ORDERED: GABAPENTIN 300 MG CAPSULE PO SCH (09:11)
--- NOTE | 2020-03-03 11:26 | NUR ---
Dietitian Recommendations * Recommend renal diet w/ Nepro BID (ONS provides an additional 850 kcal/day, 38 gm protein/day) * Encourage increase PO intakes LP, RD Please refer to Nutrition Assessment for details. Addendum: 03/03/20 at [address] Amended: Links added.
[2020-03-03] MEDS: FAMOTIDINE PF 20 MG/2 ML VIAL IVP SCH (12:08)
--- NOTE | 2020-03-03 12:35 | NUR ---
Reviewed MD notes and received orders to transfer to Tele. Placed order. Patient level care is TELE.
--- NOTE | 2020-03-03 12:36 | NUR ---
ATTENDING MD DR Karyn IGLESIAS WAS CALLED, RE: CLARIFICATION OF GABAPENTIN AND LOW K LEVEL. SPOKE TO SANTOSH.
--- NOTE | 2020-03-03 12:45 | NUR ---
Received call from Dr. Storm and discussed K of 3.1 and clarification of Gabapentin allergy. Received orders to give 40 MEQ K PO once and to DC Gabapentin. MD also requested a swallow eval. Orders entered.
--- NOTE | 2020-03-03 12:45 | NUR ---
Confirmed with Dr. Storm to transfer to Tele.
[2020-03-03] MEDS ORDERED: POTASSIUM CHLORIDE 20 MEQ/PKT PACKET PO ONE (13:00)
--- NOTE | 2020-03-03 15:00 | NUR ---
Wound care completed. Applied betadine on left great toe and covered sacral area with foam dressing. Patient tolerated without complaint or complication.
--- NOTE | 2020-03-03 18:00 | NUR ---
PT TRANSFERRED Report given to Geoffrey at bedside. All belongings sent with patient. Patient left floor via gurney escorted by RN in no distress.
--- NOTE | 2020-03-03 18:30 | NUR ---
Patient received, AOx3. Midline on the right AC; On room air, sat at 98%. SR-ST on monitor.
--- NOTE | 2020-03-03 19:25 | NUR ---
initial notes: pt is sleeping, no pain and not distress, no sob. sinus tach. at monitor. saturation is not reading. ivf infusing to right upper arm midline infusing well. covid isolation, safety precaution in place. will monitor.
--- NOTE | 2020-03-03 22:05 | NUR ---
pt is sleeping, wakes up and assess. no pain and not distress, no sob. needs attended. covid isolation, safety precaution in place. will monitor.
[2020-03-03] MEDS: SENNOSIDES 8.6 MG TABLET PO SCH (22:10)
[2020-03-03] MEDS: hydrALAZINE HCL 25 MG TABLET PO SCH (22:10)
[2020-03-03] MEDS: ATORVASTATIN 20 MG TABLET PO SCH (22:10)
--- NOTE | 2020-03-03 22:17 | NUR ---
PAGED: I PAGED DR. RIDGE SANCHEZ I SPOKE WM HARRISON
--- NOTE | 2020-03-03 22:32 | NUR ---
DR. SABILLON CALLED BACK
--- NOTE | 2020-03-04 | NUR ---
sleeping, comfortable. no sign of pain, no sob. stable. will monitor
--- NOTE | 2020-03-04 02:03 | NUR ---
pt is resting, wakes up, no pain, vital sign are stable. needs attended, covid isolation. safety precaution in place. will monitor.
[2020-03-04 02:05] VITALS: BP_SYST 159
[2020-03-04] MEDS: PIPERACILLIN/TAZOBACTAM 2.25 GM in NS 50 ML IV SCH ×4 (03:06→20:00)
--- NOTE | 2020-03-04 04:00 | NUR ---
pt is sleeping, no sign of pain,no sob. stable on monitor. safety precaution in place. will monitor.
--- NOTE | 2020-03-04 06:30 | NUR ---
pt is resting, wakes up, no pain, blood sugar 78, needs attended, covid isolation. safety precaution in place. will monitor.
--- NOTE | 2020-03-04 07:20 | NUR ---
closing: pt is sleeping, no sign of pain,no sob. stable the whole shift. safety precaution in place. covid isolation. call light in reach.sbar report given to leeann elder.
[2020-03-04 08:00] VITALS: BP_SYST 151
--- NOTE | 2020-03-04 08:00 | NUR ---
Patient received, AOx3. Midline on the right AC; On room air, sat at 99%. SR-ST on monitor. PAtient is fed breakfast, but refused except for half a bottle of Nepro and juice. Will continue to monitor.
[2020-03-04] MEDS: ENOXAPARIN SODIUM 30 MG/0.3 ML SYRINGE SUBCUT SCH (08:10)
[2020-03-04] MEDS: CLOPIDOGREL BISULFATE 75 MG TABLET PO SCH (08:15)
[2020-03-04] MEDS: ASPIRIN 81 MG TABLET(ECOTRIN) PO SCH (08:15)
[2020-03-04] MEDS: DOCUSATE SODIUM 100 MG CAPSULE PO SCH (08:15)
[2020-03-04] MEDS: ASCORBIC ACID 500 MG TABLET PO SCH (08:15)
[2020-03-04] MEDS: SEVELAMER CARBONATE 800 MG TABLET PO SCH ×3 (08:15→17:06)
[2020-03-04] MEDS: BISACODYL 10 MG/SUPPOSITORY RC SCH (08:15)
[2020-03-04] MEDS: cycloSPORINE 0.05%, 0.4 ML OPHTHALMIC EMULSION DROPERETTE OP SCH (09:00)
--- NOTE | 2020-03-04 10:00 | NUR ---
Patient is resting, no signs of distress noted. Will continue to monitor.
[2020-03-04] MEDS: FAMOTIDINE PF 20 MG/2 ML VIAL IVP SCH (11:15)
[2020-03-04 12:00] VITALS: BP_SYST 155
--- NOTE | 2020-03-04 13:00 | NUR ---
Patient's blood sugar at 110. No coverage needed. Patient is fed with lunch, but he had Juice and some Nepro that was offered to him despite encouragement from RN.
[2020-03-04] MEDS: D5/0.45 NS 1,000 ML IV SCH (14:26)
[2020-03-04 16:00] VITALS: BP_SYST 157
[2020-03-04 16:30] LABS: BASOPHILS % (AUTO) 0.4 % (0.0-2.0); EOSINOPHILS % (AUTO) 0.3 % (0.0-4.0); HEMOGLOBIN 10.8 g/dL (14.0-18.0); LYMPHOCYTES # (AUTO) 1.6 K/uL (1.0-5.5); LYMPHOCYTES % (AUTO) 23.4 % (20.5-51.5); MEAN CORPUSCULAR HEMOGLOBIN 32 pg (27-31); MEAN CORPUSCULAR HGB CONC 33 % (32-36); MONOCYTES # (AUTO) 0.6 K/uL (0.0-1.0); MONOCYTES % (AUTO) 8.8 % (1.7-9.3); NEUTROPHILS # (AUTO) 4.5 K/uL (1.8-7.7); NEUTROPHILS % (AUTO) 67.1 % (40.0-70.0); PLATELET COUNT (AUTO) 247 K/uL (130-430); RED BLOOD CELL COUNT(AUTO) 3.38 MIL/uL (4.2-6.2); RED CELL DISTRIBUTION WIDTH 15.1 % (9.0-15.0); WHITE BLOOD COUNT (AUTO) 6.7 K/uL (4.8-10.8)
[2020-03-04 16:33] LABS: MEAN CORPUSCULAR VOLUME 98 fL (79.0-98.0)
[2020-03-04 16:41] LABS: ALANINE AMINOTRANSFERASE 12 U/L (12-78); ALBUMIN 1.6 g/dL (3.4-4.8); ANION GAP 8 (5-15); ASPARTATE AMINOTRANSFERASE 28 U/L (10-37); CALCIUM 7.9 mg/dL (8.4-11.0); CHLORIDE 102 mmol/L (98-107); CREATININE 6.51 mg/dL (0.55-1.30); GLUCOSE 108 mg/dL (70-99); SODIUM SERUM 137 mmol/L (136-145); TOTAL BILIRUBIN 0.4 mg/dL (0.0-1.0); UREA NITROGEN, BLOOD 22 mg/dL (8-21)
--- NOTE | 2020-03-04 17:02 | NUR ---
S.T. SWALLOW EVAL ATTEMPTED. SWALLOW EVAL ATTEMPTED. PT ADAMANTLY REFUSED ANY P.O. DESPITE VARIOUS ATTEMPTS. HE STATED "I DON'T WANT ANYTHING. I DON'T WANT DINNER." UNABLE TO PROCEED W/ EVAL. NURSE TAY MCCURDY.
--- NOTE | 2020-03-04 17:10 | NUR ---
BLOOD SUGAR 101. NO COVERAGE NEEDED.
[2020-03-04 17:25] LABS: VANCOMYCIN,RANDOM 11.9 ug/mL
--- NOTE | 2020-03-04 18:02 | NUR ---
PATIENT REFUSED DINNER. DR. IGLESIAS IS ALSO CALLED ABOUT PATIENT'S SWALLOWING STATUS; RN REPORTS THAT PATIENT IS ABLE TO SWALLOW NEPRO AND SMALL PIECE OF MEAT.
[2020-03-04 19:00] VITALS: BP_SYST 145
--- NOTE | 2020-03-04 19:15 | NUR ---
change of shift.pt.presents isolation;droplet;r/o covid 19.pt.presents general status stable.pt.presents hemo-dialysis status.pt.presents perma-cath;location;rt.svc.intact.pt.presents iv access mid-line:location;rt.bicept.pt.presents munguia cath intact;patent.presents rt.bka.absent prothesis.o2 therapy via nasal cannulae.call light/telephone w/in reach of the pt.
[2020-03-04 20:00] VITALS: BP_SYST 145
--- NOTE | 2020-03-04 20:00 | NUR ---
pt.assessed.v/s assessed;b/p values noted elevated.to review the emar med-list;re; b/p medications.pt.presents loc:confused.pt.presented repeated statement:i feel good,i want to go home.i have re-oriented the pt.to place/time: general status,isolation status to no avail;pt.persist;i want to go home.iv access:mid-line assessed intact;patent iv fluids infusing.munguia cath intact;patent;urine content present;scant amount.no c/o pain,nausea.pt.assessed for cleanliness.pt.repositioned.call light/telephone placed w/in reach of the pt.i have synchronized the tv programming.
--- NOTE | 2020-03-04 20:30 | NUR ---
i have assessed the blood glucose.value;102mg/dl.i have apprise the pt.of the blood glucose value.
[2020-03-04] MEDS: hydrALAZINE HCL 25 MG TABLET PO SCH (21:00)
[2020-03-04] MEDS: SENNOSIDES 8.6 MG TABLET PO SCH (21:00)
[2020-03-04] MEDS: ATORVASTATIN 20 MG TABLET PO SCH (21:00)
--- NOTE | 2020-03-04 21:00 | NUR ---
2100pmedications administered.lopressor;b/p medication;scheduled administered re;b/p values.no requests posited @this hour.pt.capable to ingest the medications whole w/out difficulty.call light/telephone placed w/in reach of the pt.
--- NOTE | 2020-03-04 22:00 | NUR ---
pt.assessed.pt.presents quiescent affect;calm,somnolent.midline intact;patent iv fluids infusing.munguia cath intact; patent urine content present;scant amount.perma-cath rt.svc intact.pt.assessed for cleanliness.pt.repositioned.general status stable.respiratory status stable;unlabored;02-sat%=96%.call light/telephone placed w/in reach of the pt.no c/o pain,nausea.
[2020-03-05] VITALS: BP_SYST 135
--- NOTE | 2020-03-05 | NUR ---
pt.assessed.v/s assessed;b/p values noted w/in normal limits.no c/o pain,nausea.iv access:mid-line intact;patent iv fluids infusing.munguia cath intact;patent urine content present;scant amount.pt.assessed for cleanliness.pt.repositioned. general status stable.respiratory status stable;unlabored:02-sat%=96%.call light/telephone placed w/in reach of the pt.
--- NOTE | 2020-03-05 02:00 | NUR ---
pt.assessed.pt.presents quiescent affect;calm somnolent.pt.assessed for cleanliness.pt.repositioned. iv access intact;patent iv fluids infusing.munguia cath intact;patent urine content present;scant amount. no c/o pain,nausea.general status stable.respiratory status stable;o2-sat%=96%.call light/telephone placed w/in reach of the pt.
[2020-03-05] MEDS: PIPERACILLIN/TAZOBACTAM 2.25 GM in NS 50 ML IV SCH ×4 (02:47→20:48)
[2020-03-05 04:00] VITALS: BP_SYST 126
--- NOTE | 2020-03-05 04:00 | NUR ---
pt.assessed.pt.presents quiescent affect;calm,somnolent.pt.assessed for cleanliness.pt.repositioned. mid-line intact;patent iv fluids infusing.munguia cath intact;patent urine content present.perma-cath intact. no c/o pain,nausea.general status stable.respiratory status stable;unlabored;02-sat%=96%.call light/ telephone placed w/in reach of the pt.
[2020-03-05] MEDS: D5/0.45 NS 1,000 ML IV SCH (05:51)
--- NOTE | 2020-03-05 06:30 | NUR ---
PT.ASSESSED.BLOOD GLUCOSE ASSESSED;INITIAL VALUE 89MG/DL.I HAVE FEED THE PT.I RE-ASSESSED THE BLOOD GLUCOSE POST PRANDAL:BLOOD GLUCOSE VALUE;107MG/DL.I HAVE ASSESSED FOR CLEANLINESS.I HAVE CLEANED THE PT.PT.REPOSITIONED.I HAVE ATTENDED TO THE WOUND CARE.I HAVE ADMINISTERED ZOSYN;ABX;IVPB 0600A DOSE.PT.CLEANED.PT.REPOSITIONED.MID-LINE INTACT.TROY CATH INTACT;PATENT;URINE CONTENT PREST;SCANT.CALL LIGHT/TELEPHONE;PLACED W/IN REACH OF THE PT.
[2020-03-05 07:30] LABS: BASOPHILS % (AUTO) 0.2 % (0.0-2.0); EOSINOPHILS % (AUTO) 0.1 % (0.0-4.0); HEMATOCRIT 33.1 % (36-54); HEMOGLOBIN 10.9 g/dL (14.0-18.0); LYMPHOCYTES # (AUTO) 1.5 K/uL (1.0-5.5); LYMPHOCYTES % (AUTO) 15.1 % (20.5-51.5); MEAN CORPUSCULAR HEMOGLOBIN 32 pg (27-31); MEAN CORPUSCULAR HGB CONC 33 % (32-36); MEAN CORPUSCULAR VOLUME 96 fL (79.0-98.0); MONOCYTES # (AUTO) 0.4 K/uL (0.0-1.0); NEUTROPHILS # (AUTO) 7.9 K/uL (1.8-7.7); NEUTROPHILS % (AUTO) 80.6 % (40.0-70.0); PLATELET COUNT (AUTO) 258 K/uL (130-430); RED BLOOD CELL COUNT(AUTO) 3.45 MIL/uL (4.2-6.2); RED CELL DISTRIBUTION WIDTH 15.3 % (9.0-15.0); WHITE BLOOD COUNT (AUTO) 9.8 K/uL (4.8-10.8)
--- NOTE | 2020-03-05 07:30 | NUR ---
OPENING NOTES: RECEIVED PATIENT FROM DIRECTOR OF STRATEGIC PARTNERSHIPS NURSE. PATIENT IS ASLEEP LAYING DOWN IN BED. PATIENT IS TOLERATING OXYGEN ON ROOM AIR WITH NO SIGNS OF DISTRESS OR SHORTNESS OF BREATH NOTED. IV SITE IS PATENT WITH NO SIGNS OF INFILTRATION NOTED. CONDOM CATHETER INTACT AND DRAINING BY GRAVITY. PATIENT IN STABLE CONDITION. SAFETY, FALL, ASPIRATION, AND CONTACT PRECAUTIONS ARE IN PLACE. BED LOCKED IN LOWEST POSITION WITH CALL LIGHT IN REACH. WILL CONTINUE TO MONITOR PATIENT FOR ANY CHANGES.
[2020-03-05 07:41] LABS: ANION GAP 6 (5-15); CALCIUM 8.3 mg/dL (8.4-11.0); CHLORIDE 100 mmol/L (98-107); GLUCOSE 118 mg/dL (70-99); PHOSPHORUS 2.7 mg/dL (2.7-4.5); SODIUM SERUM 135 mmol/L (136-145); UREA NITROGEN, BLOOD 26 mg/dL (8-21)
[2020-03-05 08:00] VITALS: BP_SYST 153
[2020-03-05] MEDS ORDERED: IVERMECTIN 3 MG TABLET PO ONE (09:30)
[2020-03-05] MEDS: ASPIRIN 81 MG TABLET(ECOTRIN) PO SCH (09:57)
[2020-03-05] MEDS: SEVELAMER CARBONATE 800 MG TABLET PO SCH ×3 (09:57→17:00)
[2020-03-05] MEDS: ASCORBIC ACID 500 MG TABLET PO SCH (09:57)
[2020-03-05] MEDS: cycloSPORINE 0.05%, 0.4 ML OPHTHALMIC EMULSION DROPERETTE OP SCH (09:57)
[2020-03-05] MEDS: DOCUSATE SODIUM 100 MG CAPSULE PO SCH (09:57)
[2020-03-05] MEDS: CLOPIDOGREL BISULFATE 75 MG TABLET PO SCH (09:57)
[2020-03-05] MEDS: BISACODYL 10 MG/SUPPOSITORY RC SCH (09:58)
[2020-03-05] MEDS: ENOXAPARIN SODIUM 30 MG/0.3 ML SYRINGE SUBCUT SCH (09:59)
--- NOTE | 2020-03-05 10:21 | NUR ---
RN ROUNDS: PATIENT IS AWAKE AND ALERT x2 LAYING DOWN IN BED. PATIENT DENIES ANY PAIN AT THE MOMENT. NO SIGNS OF DISTRESS OR SHORTNESS OF BREATH NOTED. PATIENT IN STABLE CONDITION. WILL CONTINUE TO MONITOR PATIENT FOR ANY CHANGES.
[2020-03-05] MEDS: FAMOTIDINE PF 20 MG/2 ML VIAL IVP SCH (12:02)
[2020-03-05 12:28] VITALS: BP_SYST 165
--- NOTE | 2020-03-05 12:31 | NUR ---
RN ROUNDS: PATIENT IS ASLEEP LAYING DOWN IN BED. NO SIGNS OF DISTRESS OR SHORTNESS OF BREATH NOTED. PATIENT RECEIVING DIALYSIS. DIALYSIS NURSE AT BEDSIDE. PATIENT IN STABLE CONDITION. WILL CONTINUE TO MONITOR PATIENT FOR ANY CHANGES.
--- NOTE | 2020-03-05 14:29 | NUR ---
RN ROUNDS: PATIENT IS ASLEEP LAYING DOWN IN BED. DIALYSIS NURSE STATED THE PATIENT TOLD HIM TO " STOP ALREADY BECAUSE HE COULD NOT TAKE IT ANYMORE". DIALYSIS NURSE ATTEMPTED TO REASON WITH HIM AND EXPLAINED THAT THERE WAS ONLY 25 MINUTES LEFT BUT PATIENT BECAME AGITATED SO DIALYSIS NURSE STOPPED. HE WAS ABLE TO PULL OUT 2.5 LITERS. PATIENT IS TOLERATING OXYGEN ON ROOM AIR WITH NO SIGNS OF DISTRESS OR SHORTNESS OF BREATH NOTED. PATIENT IN STABLE CONDITION. WILL CONTINUE TO MONITOR PATIENT FOR ANY CHANGES.
[2020-03-05 16:00] VITALS: BP_SYST 174
--- NOTE | 2020-03-05 16:20 | NUR ---
RN ROUNDS: PATIENT IS AWAKE AND ALERT x2 LAYING DOWN IN BED. PATIENT WAS CHANGED AND CLEANED. PATIENT TOLERATED IT WELL. PATIENT DENIES ANY PAIN AT THE MOMENT. PATIENT IS TOLERATING OXYGEN ON ROOM AIR WITH NO SIGNS OF DISTRESS OR SHORTNESS OF BREATH NOTED. PATIENT IN STABLE CONDITION. WILL CONTINUE TO MONITOR PATIENT FOR ANY CHANGES.
--- NOTE | 2020-03-05 18:47 | NUR ---
CLOSING NOTES: PATIENT IS ASLEEP LAYING DOWN IN BED. PATIENT IS TOLERATING OXYGEN ON ROOM AIR WITH NO SIGNS OF DISTRESS OR SHORTNESS OF BREATH NOTED. IV SITE IS PATENT WITH NO SIGNS OF INFILTRATION NOTED. CONDOM CATHETER INTACT AND DRAINING BY GRAVITY. PATIENT IN STABLE CONDITION. SAFETY, FALL, ASPIRATION, AND CONTACT PRECAUTIONS REMAINED IN PLACE THROUGHOUT THE SHIFT. BED LOCKED IN LOWEST POSITION WITH CALL LIGHT IN REACH. WILL ENDORSE PATIENT CARE TO ONCOMING CRATE LINER NURSE.
[2020-03-05 20:30] VITALS: BP_SYST 160
--- NOTE | 2020-03-05 20:30 | NUR ---
Opening notes Pt asleep, easily awakens, VSS, afebrile. No c/o pain or discomfort noted. O2 sat 94% on room air. IVF infusing at ordered rate AMBER midline. Condom catheter intact, anuric. Pt repositioned, L. foot maintained floated on pillow. Call light within easy reach. Bed low, locked, siderails up. Will continue to monitor.
[2020-03-05] MEDS: ATORVASTATIN 20 MG TABLET PO SCH (20:48)
[2020-03-05] MEDS: SENNOSIDES 8.6 MG TABLET PO SCH (20:48)
[2020-03-05] MEDS: hydrALAZINE HCL 25 MG TABLET PO SCH (21:12)
--- NOTE | 2020-03-05 21:13 | NUR ---
Med pass Pt awake, no s/s distress noted. BS checked 141, no indication for insulin per ss protocol. HOB elevated, PO meds administered as ordered. Pt tolerated well. Call light within reach. To monitor.
[2020-03-06 01:30] VITALS: BP_SYST 160
[2020-03-06] MEDS: D5/0.45 NS 1,000 ML IV SCH ×2 (01:30→15:05)
--- NOTE | 2020-03-06 01:30 | NUR ---
Rounds/Pericare Pt asleep, easily awakens, VSS, afebrile. No c/o pain or discomfort noted. O2 sat 96-97% on room air. IV antibiotic administered at ordered rate AMBER midline. Pt incontinent of large soft stool. Sacral dressing C/D/I. Pericare/skin care provided. Pt thankful. Condom catheter intact, anuric. Call light within reach. Bed low, locked, siderails up. Will continue to monitor.
[2020-03-06] MEDS: PIPERACILLIN/TAZOBACTAM 2.25 GM in NS 50 ML IV SCH ×4 (01:46→21:22)
--- NOTE | 2020-03-06 03:30 | NUR ---
Rounds Pt asleep, respirations even and unlabored. IVF infusing at ordered rate AMBER clear and patent. Call light remains within reach. Bed low, locked, siderails up. Will continue to monitor.
--- NOTE | 2020-03-06 06:17 | NUR ---
Closing notes Pt alert, awake, resting in bed. Respirations even and unlabored on room air. BS checked 73, encouraged pt to drink Nepro at bedside. IVF infusing at ordered rate AMBER midline, tubings changed. R chest subclavian catheter dressing C/D/I. Condom cath in place, pt oliguric. Call light remains within easy reach. Bed low, locked, siderails up. To endorse to AM nurse.
--- NOTE | 2020-03-06 06:20 | NUR ---
CXRay at bedside.
--- NOTE | 2020-03-06 07:30 | NUR ---
OPENING NOTES: RECEIVED PATIENT FROM HOMELAND SECURITY PROGRAM SPECIALIST NURSE. PATIENT IS AWAKE AND ALERT x3 LAYING DOWN IN BED. PATIENT IS TOLERATING OXYGEN ON ROOM AIR WITH NO SIGNS OF DISTRESS OR SHORTNESS OF BREATH NOTED. IV SITE IS PATENT WITH NO SIGNS OF INFILTRATION NOTED. CONDOM CATHETER INTACT AND DRAINING BY GRAVITY. PATIENT IN STABLE CONDITION. SAFETY, FALL, ASPIRATION, AND CONTACT PRECAUTIONS ARE IN PLACE. BED LOCKED IN LOWEST POSITION WITH CALL LIGHT IN REACH. WILL CONTINUE TO MONITOR PATIENT FOR ANY CHANGES.
[2020-03-06] MEDS: SEVELAMER CARBONATE 800 MG TABLET PO SCH ×3 (08:43→17:00)
[2020-03-06] MEDS: cycloSPORINE 0.05%, 0.4 ML OPHTHALMIC EMULSION DROPERETTE OP SCH (08:43)
[2020-03-06] MEDS: DOCUSATE SODIUM 100 MG CAPSULE PO SCH (08:43)
[2020-03-06] MEDS: CLOPIDOGREL BISULFATE 75 MG TABLET PO SCH (08:43)
[2020-03-06] MEDS: ENOXAPARIN SODIUM 30 MG/0.3 ML SYRINGE SUBCUT SCH (08:43)
[2020-03-06] MEDS: ASPIRIN 81 MG TABLET(ECOTRIN) PO SCH (08:43)
[2020-03-06] MEDS: ASCORBIC ACID 500 MG TABLET PO SCH (08:43)
[2020-03-06] MEDS: BISACODYL 10 MG/SUPPOSITORY RC SCH (08:43)
[2020-03-06 08:46] VITALS: BP_SYST 123
--- NOTE | 2020-03-06 10:14 | NUR ---
RN ROUNDS: PATIENT IS ASLEEP LAYING DOWN IN BED. PATIENT IS TOLERATING OXYGEN ON ROOM AIR WITH NO SIGNS OF DISTRESS OR SHORTNESS OF BREATH NOTED. PATIENT IN STABLE CONDITION. WILL CONTINUE TO MONITOR PATIENT FOR ANY CHANGES.
[2020-03-06 11:02] LABS: ANION GAP 8 (5-15); CHLORIDE 98 mmol/L (98-107); CREATININE 6.29 mg/dL (0.55-1.30); GLUCOSE 108 mg/dL (70-99); POTASSIUM 3.2 mmol/L (3.5-5.1); SODIUM SERUM 131 mmol/L (136-145); UREA NITROGEN, BLOOD 24 mg/dL (8-21)
[2020-03-06] MEDS: FAMOTIDINE PF 20 MG/2 ML VIAL IVP SCH (11:12)
[2020-03-06 12:30] VITALS: BP_SYST 148
--- NOTE | 2020-03-06 12:30 | NUR ---
RN ROUNDS: PATIENT IS AWAKE AND ALERT x3 LAYING DOWN IN BED. PATIENT IS TOLERATING OXYGEN ON ROOM AIR WITH NO SIGNS OF DISTRESS OR SHORTNESS OF BREATH NOTED. IV SITE IS PATENT WITH NO SIGNS OF INFILTRATION NOTED. PATIENT DENIES ANY PAIN AT THE MOMENT. PATIENT IN STABLE CONDITION. WILL CONTINUE TO MONITOR PATIENT FOR ANY CHANGES.
--- NOTE | 2020-03-06 13:24 | NUR ---
Nutrition F/U Admitting Diagnosis Sepsis and hypotension Reviewed Pertinent Medical/Surgical Hx Medical Record Other Medical History Comment: PMH: HTN, PAD, CKD/ESRD, HD, peripheral neuropathy, s/p R AKA, L great toe infection, necrosis, dry gangrene, DM type 2, HLD per physician notes Pt also found w/ poor PO intakes, severe malnutrition per physician notes Subjective Information RD attempted to call RN x 2 -- RN phone line was busy. RD also tried to reach pt via phone -- no response. Pt's poor intake continued as evidenced by 19% x 6 meals per intake record -- negligible PO intake. Last BM x 2 (03/05) noted per EMR. New wt changes noted -- 80.286 kg/177# per EMR -- 3# wt loss within 3 days. Pt is not meeting nutritional needs. Continue encourage increase PO intakes at meal times. Consider appetite stimulant if poor PO intake persists. Current Diet Order/Nutrition Support Renal Standard with Honey Thick Liquids x 3 days Patient/Significant Other Unable To Verbalize Education Provided Not Indicated Pertinent Medications colace, dulcolax suppository, VIT C, glucose, renvela, senna, SSI, cyclosporine Pertinent Labs BG 108, POC BG 102 H, BUN 26 H, CRE 7.30 H, K 3.2 L, COVID-19 Positive 03/02/20 Height (Feet) 5 feet Height (Inches) 11.00 inches Weight (Pounds) 180 pounds Weight (Calculated Kilograms) 81.466096 kilograms Patient Weight NEW 80.286 kg per EMR Body Mass Index 25.10 kg/m2 %IBW 105 [place]/Adjusted Body Weight IBW: 172#/78 kg. Adj IBW (R AKA): 150#/68 kg Recent Weight Change unable to verify Weight Status Appropriate Food Allergies unable to verify Usual Diet At Home Renal diet w/ thin liquids at SNF per EMR Skin Integrity Comment: Saúl scale: 15; per RN, pt has a dark, gangrenous L toe, no open/active wounds, but healed scar to sacral area Current % PO Negligible <25% Estimated Energy Expenditure (kcals/day) 1774-4467 kcal/day (30-35 kcal/kg Adj IBW for sepsis) Estimated Protein Required (g/day) 85-102 gm/day (1.25-1.5 gm/kg Adj IBW for sepsis, ESRD/HD, geriatric) Estimated Fluid Required (l/day) Per physician d/t renal Dz Problem/Etiology/Signs/Symptoms Suboptimal nutritional intakes related to possible lack of appetite as evidenced by negligible PO intake records and 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 *ongoing Expected Outcomes/Goals - Monitor appetite and PO intakes w/ goal of pt meeting at least 50% of estimated nutritional needs, labs trending WNL, normal GI function, and skin integrity/wt maintenance Dietitian Recommendations * Recommend continue renal diet w/ Nepro BID (ONS provides an additional 850 kcal/day, 38 gm protein/day) * Encourage increase PO intakes * Consider appetite stimulant if poor PO intake persists. Follow Up High Risk: F/U in 2-3days
--- NOTE | 2020-03-06 13:43 | NUR ---
Dietitian Recommendations * Recommend continue renal diet w/ Nepro BID (ONS provides an additional 850 kcal/day, 38 gm protein/day) * Encourage increase PO intakes * Consider appetite stimulant if poor PO intake persists. Please see Nutrition F/U for details. EP,RD
--- NOTE | 2020-03-06 14:20 | NUR ---
GEORGI SCALE EVALUATION: Patient evaluated for a low Georgi score of 14. Patient was awake, alert, oriented and received in a Jason bed with an IsoFlex RYAN mattress with low air-loss therapy. Patient is unable to turn in bed independently. Assessment provided by ELPIDIO Rai: Skin assessment: 1. Sacral area: Scar tissue, present on admission. Recommend continue: Cover site with a Sacral foam dressing. Do not place patient flat on his back at any time. 2. Left Great Toe: Dry gangrene, present on admission. Site has 100% black eschar. No odor, no drainage. Dry, stable. Recommend continue: [place] gangrenous site with Betadine daily. Recommend continue: Reposition patient side to side only every 2 hours with pillow support and off-load pressure areas with pillows for pressure re-distribution. Elevate, off-load and float left heel and right residual limb with pillows. Use moisture barrier cream on buttocks and other moisture susceptible areas QID and as needed for soiling. Perform skin care and monitor skin integrity Q shift. Maintain patient on a low air-loss mattress.
--- NOTE | 2020-03-06 14:36 | NUR ---
RN ROUNDS: PATIENT IS ASLEEP LAYING DOWN IN BED. PATIENT TOLERATING OXYGEN ON ROOM AIR WITH NO SIGNS OF DISTRESS OR SHORTNESS OF BREATH NOTED. PATIENT IN STABLE CONDITION. WILL CONTINUE TO MONITOR PATIENT FOR ANY CHANGES.
[2020-03-06] MEDS ORDERED: POTASSIUM CHLORIDE 20 MEQ/PKT PACKET PO ONE (14:45)
--- NOTE | 2020-03-06 16:17 | NUR ---
RN ROUNDS: PATIENT ASLEEP LAYING DOWN IN BED. PATIENT WOKE UP ONCE I SAID HIS NAME. PATIENT DENIES ANY PAIN AT THE MOMENT. PATIENT STATED HE WAS COLD. AN EXTRA BLANKET WAS PROVIDED TO HIM. IV SITE IS PATENT WITH NO SIGNS OF INFILTRATION NOTED AND RUNNING FLUIDS ORDERED. PATIENT IN STABLE CONDITION. WILL CONTINUE TO MONITOR PATIENT FOR ANY CHANGES.
[2020-03-06 16:20] VITALS: BP_SYST 157
--- NOTE | 2020-03-06 18:45 | NUR ---
CLOSING NOTES: PATIENT IS AWAKE AND ALERT x3 LAYING DOWN IN BED. PATIENT IS TOLERATING OXYGEN ON ROOM AIR WITH NO SIGNS OF DISTRESS OR SHORTNESS OF BREATH NOTED. PATIENT DENIES ANY PAIN AT THE MOMENT. PATIENT WAS CLEANED AND LINEN CHANGED. PATIENT TOLERATED IT WELL. IV SITE IS PATENT WITH NO SIGNS OF INFILTRATION NOTED. CONDOM CATHETER INTACT AND DRAINING BY GRAVITY. PATIENT IN STABLE CONDITION. SAFETY, FALL, ASPIRATION, AND CONTACT PRECAUTIONS REMAINED IN PLACE THROUGHOUT THE SHIFT. BED LOCKED IN LOWEST POSITION WITH CALL LIGHT IN REACH. WILL ENDORSE PATIENT CARE TO ONCOMING CUT OFF MACHINE UNLOADER NURSE.
[2020-03-06] MEDS: SENNOSIDES 8.6 MG TABLET PO SCH (21:23)
[2020-03-06] MEDS: ATORVASTATIN 20 MG TABLET PO SCH (21:23)
[2020-03-06 21:30] VITALS: BP_SYST 188
--- NOTE | 2020-03-06 21:30 | NUR ---
Opening notes Pt AAOx3, no s/s distress noted. BP elevated 188/96, scheduled Apresoline administered PO. Pt denies pain at this time. IVF infusing at ordered rate AMBER midline. R. sublavian permacath dressing C/D/I. Condom cath in place. Pt refused to eat dinner, encouraged pt eat/drink, pt drank 50% on Nepro. Pt states "I just want to sleep now." Call light within reach. Bed low, locked, siderails up. To monitor.
[2020-03-06] MEDS: hydrALAZINE HCL 25 MG TABLET PO SCH (21:52)
[2020-03-07 00:50] VITALS: BP_SYST 161
--- NOTE | 2020-03-07 00:50 | NUR ---
Rounds Pt asleep, easily awakens, VSS, afebrile. Pt denies pain at this time. IVF infusing at ordered rate AMBER midline dressing C/D/I. Condom cath in place. Call light remains within easy reach. Bed low, locked, siderails up. To monitor.
[2020-03-07] MEDS: PIPERACILLIN/TAZOBACTAM 2.25 GM in NS 50 ML IV SCH ×4 (01:06→23:40)
--- NOTE | 2020-03-07 02:00 | NUR ---
Rounds Pt asleep, respirations even and unlabored. IVF infusing at ordered rate AMBER midline. Call light within reach. Will continue to monitor.
--- NOTE | 2020-03-07 04:07 | NUR ---
CONSULT: CONSULT CALLED FOR DR. RIDGE MENDOZA LITERACY COORDINATOR FOR DR. RIDGE PETERSEN I SPOKE WITH SABRINA HARRISON REASON FOR CONSULT: PNA / COVID + REQUESTING CONSULT: DR. IGLESIAS REGENERATOR OPERATOR PHONE NUMBER: [phone]
--- NOTE | 2020-03-07 04:35 | NUR ---
Rounds Pt asleep, no s/s distress noted. O2 sat 98% on room air. Call light within reach. To monitor.
--- NOTE | 2020-03-07 06:05 | NUR ---
PAGED I PAGED DR. GO CHARLTON IS DIGITAL WATCH ASSEMBLER HE IS AWARE OF THE CONSULT
--- NOTE | 2020-03-07 06:40 | NUR ---
Closing notes Pt asleep easily awakens, no s/s distress noted. BS checked 85, no indication for insulin per ss protocol. IVF infusing at ordered rate AMBER midline dressing C/D/I. Pt incontinent of BM, pericare/skin care provided. Wound care provided, photos taken. Pt repositioned. L. heel maintained floated on pillow. Call light within reach. Bed low, locked, siderails up. To endorse to AM nurse.
[2020-03-07 07:18] LABS: ANION GAP 10 (5-15); CALCIUM 8.5 mg/dL (8.4-11.0); CHLORIDE 101 mmol/L (98-107); CREATININE 7.04 mg/dL (0.55-1.30); GLUCOSE 95 mg/dL (70-99); POTASSIUM 3.3 mmol/L (3.5-5.1); SODIUM SERUM 135 mmol/L (136-145); UREA NITROGEN, BLOOD 25 mg/dL (8-21)
--- NOTE | 2020-03-07 07:30 | NUR ---
OPENING NOTE Patient resting in the bed. No acute distress. Denied of pain. Skin warm and dry to touch. Midline intact to AMBER, no redness, no swelling, no drainage, covered with clean and dry transparent dressing. On D5 1/2NS at 60ml/hr, infusing well. Old AV shunt to TEZ without thrill/bruit. Perma cath intact to right subclavian, covered with clean and dry transparent dressing, no bleeding noted. Condom cath intact, drain gravity. Isolation maintained. Safety measure maintained. Call light within reached. Bed locked in low position, side rails up, bed alarm on. Will continue to monitor.
[2020-03-07 07:50] VITALS: BP_SYST 146
--- NOTE | 2020-03-07 08:21 | NUR ---
HEMODIALYSIS STARTED Patient resting in the bed. No acute distress. Hemodialysis started. Will give schedule med after hemodialysis.
[2020-03-07] MEDS: BISACODYL 10 MG/SUPPOSITORY RC SCH (09:00)
--- NOTE | 2020-03-07 09:05 | NUR ---
SEEN BY CAMERON ALEGRIA.
--- NOTE | 2020-03-07 10:00 | NUR ---
ONGOING HEMODIALYSIS Patient continue on hemodialysis, dialysis nurse at bedside. VS stable. Isolation maintained. Call light within reached. Continue to monitor.
[2020-03-07] MEDS: D5/0.45 NS 1,000 ML IV SCH ×2 (10:41→23:40)
--- NOTE | 2020-03-07 11:27 | NUR ---
HEMODIALYSIS COMPLETED Patient resting in the bed. No acute distress. Hemodialysis completed with 3,000ml out. VS stable, GC=086/78. Safety measure maintained. Call light within reached. Continue to monitor.
[2020-03-07] MEDS: DOCUSATE SODIUM 100 MG CAPSULE PO SCH (11:47)
[2020-03-07] MEDS: cycloSPORINE 0.05%, 0.4 ML OPHTHALMIC EMULSION DROPERETTE OP SCH (11:47)
[2020-03-07] MEDS: ASPIRIN 81 MG TABLET(ECOTRIN) PO SCH (11:48)
[2020-03-07] MEDS: CLOPIDOGREL BISULFATE 75 MG TABLET PO SCH (11:49)
[2020-03-07] MEDS: SEVELAMER CARBONATE 800 MG TABLET PO SCH ×3 (11:51→17:40)
[2020-03-07] MEDS: ASCORBIC ACID 500 MG TABLET PO SCH (11:51)
[2020-03-07] MEDS: ENOXAPARIN SODIUM 30 MG/0.3 ML SYRINGE SUBCUT SCH (11:52)
[2020-03-07] MEDS: FAMOTIDINE PF 20 MG/2 ML VIAL IVP SCH (11:54)
[2020-03-07 12:00] VITALS: BP_SYST 157
--- NOTE | 2020-03-07 13:10 | NUR ---
LATE ADMINISTRATED THE AM SCHEDULE MED Called pharmacy, talked to Marc regarding the late administrated of AM schedule med. Per Marc, will fix the time for Zosyn and okay to give Renagel for 1300 dose around 1430 with food.
--- NOTE | 2020-03-07 13:46 | NUR ---
Case mgt: Pt is from [facility]--Covid positive--will f/u for dc planning to snf-- RN
--- NOTE | 2020-03-07 14:44 | NUR ---
RENAGEL GIVEN WITH APPLE SAUCE.
[2020-03-07 16:00] VITALS: BP_SYST 144
[2020-03-07] MEDS ORDERED: POTASSIUM CHLORIDE 20 MEQ/PKT PACKET PO ONE (16:30)
--- NOTE | 2020-03-07 16:30 | NUR ---
SEEN AND EXAMINED BY SAMANTHA YIN WITH ORDER RECEIVED.
[2020-03-07] MEDS: INSULIN REGULAR, HUMAN 100 UNITS/ML, 10 ML VIAL (humuLIN R) SUBCUT PRN (17:42)
[2020-03-07] MEDS ORDERED: ALBUTEROL MDI INHALATION 8 GM INH INH PRN (18:15)
--- NOTE | 2020-03-07 18:22 | NUR ---
SEEN AND EXAMINED BY JOHN LYN WITH ORDER RECEIVED.
--- NOTE | 2020-03-07 18:57 | NUR ---
CLOSING NOTE Patient resting in the bed. No acute distress. Skin warm and dry to touch. Midline intact to AMBER, no redness, no swelling, no drainage, covered with clean and dry transparent dressing. On D5 1/2NS at 60ml/hr, infusing well. Perma cath intact to right subclavian, covered with clean and dry transparent dressing, no bleeding noted. Condom cath intact, drain gravity. Isolation maintained. All needs met. Safety measure maintained. Call light within reached. Bed locked in low position, side rails up, bed alarm on. Will endorse to night nurse.
--- NOTE | 2020-03-07 19:50 | NUR ---
PM SHIFT ASSESSMENT Received report from day nurse. Patient awake, watching tv, on room air, sinus rhythm in the heart monitor.
[2020-03-07] MEDS: SENNOSIDES 8.6 MG TABLET PO SCH (20:06)
[2020-03-07] MEDS: ATORVASTATIN 20 MG TABLET PO SCH (20:06)
[2020-03-07 20:30] VITALS: BP_SYST 138
[2020-03-07] MEDS: hydrALAZINE HCL 25 MG TABLET PO SCH (20:56)
--- NOTE | 2020-03-07 21:00 | NUR ---
RN ROUNDS Patient awake, in no distress, on room air, vitals stable, no facial grimacing noted for pain, due medications administered, crushed and given with applesauce, patient tolerated well, blood sugar check this pm of 137. Patient repositioned and turned with pillow support, safety precautions in place.
[2020-03-08 00:08] VITALS: BP_SYST 160
--- NOTE | 2020-03-08 00:30 | NUR ---
RN ROUNDS Patient resting quietly in bed, remains on room air, vital signs stable. Due antibiotics administered, patient repositioned and turned with pillow support, call light remains within reach, safety measures in place, will monitor.
--- NOTE | 2020-03-08 02:04 | NUR ---
RN ROUNDS/HYGIENE Patient had a bowel movement, hygiene care provided, sacral foam dressing applied to sacral area, betadine applied to left great toe, patient repositioned and turned with pillow support, safety measures in place, bed alarm on.
--- NOTE | 2020-03-08 04:12 | NUR ---
RN ROUNDS Patient resting quietly in bed, remains on room air, call light remains within reach, safety and fall measures in place, will monitor.
[2020-03-08] MEDS: PIPERACILLIN/TAZOBACTAM 2.25 GM in NS 50 ML IV SCH ×3 (05:19→19:28)
--- NOTE | 2020-03-08 06:53 | NUR ---
CLOSING NOTE Patient resting quietly in bed, remains on room air, Due antibiotics administered, blood sugar check this am of 114, no insulin coverage needed, patient repositioned and turned with pillow support, needs attended through out the shift, fall and isolation precautions maintained, will continue to monitor until report given to am nurse.
[2020-03-08 06:59] LABS: BASOPHILS % (AUTO) 0.2 % (0.0-2.0); EOSINOPHILS % (AUTO) 0.2 % (0.0-4.0); HEMATOCRIT 29.4 % (36-54); LYMPHOCYTES # (AUTO) 1.6 K/uL (1.0-5.5); LYMPHOCYTES % (AUTO) 21.8 % (20.5-51.5); MEAN CORPUSCULAR HEMOGLOBIN 32 pg (27-31); MEAN CORPUSCULAR HGB CONC 34 % (32-36); MEAN CORPUSCULAR VOLUME 94 fL (79.0-98.0); MONOCYTES # (AUTO) 0.4 K/uL (0.0-1.0); MONOCYTES % (AUTO) 5.1 % (1.7-9.3); NEUTROPHILS # (AUTO) 5.2 K/uL (1.8-7.7); NEUTROPHILS % (AUTO) 72.7 % (40.0-70.0); PLATELET COUNT (AUTO) 193 K/uL (130-430); RED BLOOD CELL COUNT(AUTO) 3.12 MIL/uL (4.2-6.2); RED CELL DISTRIBUTION WIDTH 15.1 % (9.0-15.0); WHITE BLOOD COUNT (AUTO) 7.2 K/uL (4.8-10.8)
[2020-03-08 07:10] LABS: ANION GAP 9 (5-15); CALCIUM 8.6 mg/dL (8.4-11.0); CHLORIDE 99 mmol/L (98-107); CREATININE 5.66 mg/dL (0.55-1.30); GLUCOSE 109 mg/dL (70-99); LACTATE DEHYDROGENASE 247 U/L (85-227); SODIUM SERUM 133 mmol/L (136-145); UREA NITROGEN, BLOOD 19 mg/dL (8-21)
--- NOTE | 2020-03-08 07:15 | NUR ---
OPENING NOTES PT RESTING IN BED, CHEST RISE AND FALL NOTED. EASILY AWAKEN. NONLABORED BREATHING NOTED ON ROOM AIR, O2 AT 96%. PT DENIES PAIN AND SOB AT THIS TIME. CONDOM CATHETER INTACT AND PATENT, NO URINE NOTED. PT CLEAN AND DRY. MIDLINE AND IV LINE INTACT AND PATENT, NO SIGNS OF INFILTRATION NOTED. NO ACUTE DISTRESS NOTED. BED LOCKED AND IN LOWEST POSITION. ALL NEEDS MET. CALL LIGHT IN REACH. FALL AND ASPIRATION AND ISOLATION PRECAUTIONS IN PLACE. CONTINUE TO MONITOR.
[2020-03-08 08:00] VITALS: BP_SYST 161
[2020-03-08] MEDS ORDERED: POTASSIUM CHLORIDE 20 MEQ TAB.PRT.SR PO ONE (08:15)
[2020-03-08] MEDS: BISACODYL 10 MG/SUPPOSITORY RC SCH ×2 (09:00→09:34)
[2020-03-08] MEDS: cycloSPORINE 0.05%, 0.4 ML OPHTHALMIC EMULSION DROPERETTE OP SCH (09:00)
[2020-03-08] MEDS: CLOPIDOGREL BISULFATE 75 MG TABLET PO SCH (09:34)
[2020-03-08] MEDS: ENOXAPARIN SODIUM 30 MG/0.3 ML SYRINGE SUBCUT SCH (09:34)
[2020-03-08] MEDS: ASCORBIC ACID 500 MG TABLET PO SCH (09:34)
[2020-03-08] MEDS: SEVELAMER CARBONATE 800 MG TABLET PO SCH ×3 (09:34→17:00)
[2020-03-08] MEDS: DOCUSATE SODIUM 100 MG CAPSULE PO SCH (09:34)
[2020-03-08] MEDS: ASPIRIN 81 MG TABLET(ECOTRIN) PO SCH (09:34)
--- NOTE | 2020-03-08 09:45 | NUR ---
ROUTINE MEDS ROUTINE MEDS ADMINISTERED ORDERED PER MD, EDUCATION GIVEN, TOLERATED WELL. PT SPIT UP, NO MEDICATIONS NOTED WHEN PT SPIT UP. NO ACUTE DISTRESS NOTED. ALL NEEDS MET. CALL LIGHT IN REACH. CONTINUE TO MONITOR.
[2020-03-08 12:00] VITALS: BP_SYST 141
[2020-03-08] MEDS: FAMOTIDINE PF 20 MG/2 ML VIAL IVP SCH (12:00)
--- NOTE | 2020-03-08 12:00 | NUR ---
ROUTINE MEDS ROUTINE MEDS ADMINISTERED ORDERED PER MD, EDUCATION GIVEN, TOLERATED WELL. CONTINUE TO MONITOR.
--- NOTE | 2020-03-08 14:00 | NUR ---
ROUNDS PT AWAKE AND ALERT. WATCHING TELEVISION SITTING UP IN BED. NO ACUTE DISTRESS NOTED. ALL NEEDS MET. CALL LIGHT IN REACH. CONTINUE TO MONITOR. Addendum: 03/08/20 at 1741 by Arlyn Patton RN ROUTINE MEDS ADMINISTERED. TOLERATED WELL. CONTINUE TO MONITOR.
--- NOTE | 2020-03-08 14:04 | NUR ---
PAGED PAGED LEFT A VOICEMAIL.
[2020-03-08] MEDS ORDERED: IVERMECTIN 3 MG TABLET PO ONE (14:15)
[2020-03-08 16:00] VITALS: BP_SYST 134
--- NOTE | 2020-03-08 16:00 | NUR ---
EKG DONE. TOLERATED WELL. CONTINUE TO MONITOR.
--- NOTE | 2020-03-08 19:00 | NUR ---
CLOSING NOTES PATIENT AWAKE AND ALERT. NONLABORED BREATHING NOTED ON ROOM AIR. PT DENIES PAIN AND SOB AT THIS TIME. PT CLEAN AND DRY, PERFORMED PERINEAL CARE AND REPOSITIONED WITH DIRECT MARKETING ANALYST, TOLERATED WELL. MIDLINE AND IV LINE INTACT AND PATENT, NO SIGNS OF INFILTRATION NOTED. NO ACUTE DISTRESS NOTED. BED LOCKED AND IN LOWEST POSITION. ALL NEEDS MET. CALL LIGHT IN REACH. FALL, ASPIRATION, AND ISOLATION PRECAUTIONS IN PLACE. ENDORSED CARE TO ELPIDIO MICHAEL.
[2020-03-08] MEDS: INSULIN REGULAR, HUMAN 100 UNITS/ML, 10 ML VIAL (humuLIN R) SUBCUT PRN (19:28)
--- NOTE | 2020-03-08 19:55 | NUR ---
M SHIFT ASSESSMENT Received report from day nurse. Patient awake, on room air, sinus rhythm in the heart monitor. o2 saturation of 98%.
[2020-03-08] MEDS: SENNOSIDES 8.6 MG TABLET PO SCH (20:09)
[2020-03-08] MEDS: ATORVASTATIN 20 MG TABLET PO SCH (20:09)
[2020-03-08 20:48] VITALS: BP_SYST 167
[2020-03-08] MEDS: hydrALAZINE HCL 25 MG TABLET PO SCH (20:51)
--- NOTE | 2020-03-08 21:30 | NUR ---
MED PASS Patient awake, due medications administered, patient able to take medications with applesauce, aspiration precautions maintained. Cleaned and repositioned patient with pillow support. Safety precautions in place, call light remains within reach.
--- NOTE | 2020-03-09 00:01 | NUR ---
RN ROUNDS Patient sleeping, breathing is even and unlabored, remains on room air, vital signs stable. Due antibiotics administered, safety and isolation measures in place, will monitor.
[2020-03-09 00:02] VITALS: BP_SYST 152
--- NOTE | 2020-03-09 02:30 | NUR ---
RN ROUNDS Patient sleeping, breathing is even and unlabored, remains on room air, safety measures in place, will closely monitor.
--- NOTE | 2020-03-09 04:25 | NUR ---
RN ROUNDS Patient continues to sleep, breathing is even and unlabored, remains on room air, safety and fall measures in place, will closely monitor.
[2020-03-09] MEDS: PIPERACILLIN/TAZOBACTAM 2.25 GM in NS 50 ML IV SCH ×5 (05:09→17:31)
--- NOTE | 2020-03-09 06:03 | NUR ---
CLOSING NOTE Patient resting quietly in bed, remains on room air, 02 saturation of 98%, due antibiotics administered, midline remains intact and patent, blood sugar check this am of 78, no insulin coverage needed, patient given protein supplement to drink, patient repositioned and turned with pillow support, left heel elevated with pillow support, condom catheter secured and to gravity, needs attended through out the shift, fall and isolation precautions maintained, will continue to monitor until report given to am nurse.
[2020-03-09 07:17] LABS: ANION GAP 11 (5-15); CALCIUM 8.6 mg/dL (8.4-11.0); CHLORIDE 101 mmol/L (98-107); CREATININE 6.65 mg/dL (0.55-1.30); GLUCOSE 93 mg/dL (70-99); SODIUM SERUM 134 mmol/L (136-145); UREA NITROGEN, BLOOD 22 mg/dL (8-21)
[2020-03-09 08:12] VITALS: BP_SYST 176
--- NOTE | 2020-03-09 08:12 | NUR ---
INITIAL ROUNDS Received pt AAOx3, no s/s resp distress, no c/o pain or discomfort, IVF infusing well at KVO to AMBER midline with no s/s infiltration to site, dressing clean, dry and intact. Pt on Droplet Isolation precautions for Covid 19+. Pt soiled with urine and BM-pt cleaned up, dressing to sacrum soiled and removed. Area cleansed with mild soap and water, moisture barrier cream applied-noted old healed scar tissue-skin intact. Pt repositioned with pillow support and left heel off-loaded and right AKA stump off-loaded for skin care. Plan of care for the day reviewed with pt-pt just stated "leave me alone". Pain management, isolation precautions, disease management, skin and safety discussed-pt just stated "go away". HOB elevated for aspiration precautions, side rails up x3, bed alarm on for safety, call light within reach.
[2020-03-09] MEDS: DOCUSATE SODIUM 100 MG CAPSULE PO SCH (08:52)
[2020-03-09] MEDS: ASPIRIN 81 MG TABLET(ECOTRIN) PO SCH (08:52)
[2020-03-09] MEDS: FAMOTIDINE 20 MG TABLET PO SCH (08:52)
[2020-03-09] MEDS: CLOPIDOGREL BISULFATE 75 MG TABLET PO SCH (08:53)
[2020-03-09] MEDS: ASCORBIC ACID 500 MG TABLET PO SCH (08:53)
[2020-03-09] MEDS: BISACODYL 10 MG/SUPPOSITORY RC SCH (08:53)
[2020-03-09] MEDS: SEVELAMER CARBONATE 800 MG TABLET PO SCH ×3 (08:53→17:00)
[2020-03-09] MEDS: ENOXAPARIN SODIUM 30 MG/0.3 ML SYRINGE SUBCUT SCH (08:53)
[2020-03-09] MEDS: cycloSPORINE 0.05%, 0.4 ML OPHTHALMIC EMULSION DROPERETTE OP SCH (09:45)
--- NOTE | 2020-03-09 10:07 | NUR ---
ROUNDS/ Pt repositioned with pillow support and left heel off-loaded for skin care. Pt with no s/s resp distress, no c/o pain or discomfort. Pt seen by Dr. Storm. All precautions remain in place. Call light within reach.
--- NOTE | 2020-03-09 10:11 | NUR ---
DC Barriers: COVID-19 positive, HD today, cxr: Increase in the right basilar infiltrate and superimposed effusion. Plan and tx per Pulmo's note. unable to transfer pt back to [facility].
[2020-03-09 12:40] VITALS: BP_SYST 147
--- NOTE | 2020-03-09 12:45 | NUR ---
ROUNDS Pt resting quietly in bed with no s/s resp distress, noted pt with productive cough with moderate amount of thin, white sputum. Pt repositioned with pillow support. Pt declined to eat at this moment-pt stated he just went to sleep. Educated on the need for him to eat and told him I will be back in a little while. All precautions remain in place, call light within reach.
[2020-03-09 13:05] VITALS: BP_SYST 108
--- NOTE | 2020-03-09 13:48 | NUR ---
Nutrition F/U Admitting Diagnosis Sepsis and hypotension Reviewed Pertinent Medical/Surgical Hx Medical Record Other Medical History Comment: PMH: HTN, PAD, CKD/ESRD, HD, peripheral neuropathy, s/p R AKA, L great toe infection, necrosis, dry gangrene, DM type 2, HLD per physician notes Pt also found w/ poor PO intakes, severe malnutrition, and CHF per physician notes Subjective Information RD contacted nursing station via phone and was able to reach pt's primary RN -- RN stated pt ate 5% of his tray and drank 25% Nepro during breakfast. Per RN, pt was sleeping during lunch, will feed pt lunch later today. Last BM x 2 (03/08) noted. Pt's negligible intake continues per intake record, at 5% x last three meals. RD discussed with RN upon considering giving appetite stimulant to optimize pt's PO intake. Per RN, will ask MD's permission upon giving pt appetite stimulant. New wt change noted per EMR -- 81 kg -- 1 kg/2.2# wt gain within 3 days -- likely d/t fluid status related to pt's compromised renal function. Pt is not yet meeting nutritional needs. Current Diet Order/Nutrition Support Renal Standard with Honey Thick Liquids x 6 days Patient/Significant Other Unable To Verbalize Education Provided Not Indicated Pertinent Medications colace, dulcolax suppository, VIT C, glucose, renvela, senna, SSI, cyclosporine Pertinent Labs BG 93 WNL, POC BG 78 (WNL), BUN 22 H (trending down), CRE 6.65 H (improved), K 3.0 L, COVID-19 Positive 03/02/20 Height (Feet) 5 feet Height (Inches) 11.00 inches Weight (Pounds) 180 pounds Weight (Calculated Kilograms) 81.223168 kilograms Patient Weight NEW 81.306 kg per EMR (03/09) Body Mass Index 25.10 kg/m2 %IBW 105 [place]/Adjusted Body Weight IBW: 172#/78 kg. Adj IBW (R AKA): 150#/68 kg Recent Weight Change unable to verify Weight Status Appropriate Food Allergies unable to verify Usual Diet At Home Renal diet w/ thin liquids at SNF per EMR Skin Integrity Comment: Saúl scale: 13; per RN, pt has a dark, gangrenous L toe, no open/active wounds, but healed scar to sacral area Current % PO Negligible <25% Estimated Energy Expenditure (kcals/day) 9741-0256 kcal/day (30-35 kcal/kg Adj IBW for sepsis) Estimated Protein Required (g/day) 85-102 gm/day (1.25-1.5 gm/kg Adj IBW for sepsis, ESRD/HD, geriatric) Estimated Fluid Required (l/day) Per physician d/t renal Dz Problem/Etiology/Signs/Symptoms Suboptimal nutritional intakes related to possible lack of appetite as evidenced by negligible PO intake records and 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 *ongoing Expected Outcomes/Goals - Monitor appetite and PO intakes w/ goal of pt meeting at least 50% of estimated nutritional needs, labs trending WNL, normal GI function, and skin integrity/wt maintenance Dietitian Recommendations * Recommend continue renal diet w/ Nepro BID (ONS provides an additional 850 kcal/day, 38 gm protein/day) * Encourage increase PO intakes * Consider appetite stimulant if negligible PO intake persists. * Consider alternative nutrition support if negligible PO intake persists > 1 week. Follow Up High Risk: F/U in 2-3days
--- NOTE | 2020-03-09 14:10 | NUR ---
Dietitian Recommendations * Recommend continue renal diet w/ Nepro BID (ONS provides an additional 850 kcal/day, 38 gm protein/day) * Encourage increase PO intakes * Consider appetite stimulant if negligible PO intake persists. * Consider alternative nutrition support if negligible PO intake persists > 1 week. Please see Nutrition F/U for details. EP,RD
[2020-03-09] MEDS ORDERED: HEPARIN SODIUM,PORCINE 5000 UNITS/ML VIAL IVP ONE ×2 (14:15)
[2020-03-09] MEDS ORDERED: POTASSIUM CHLORIDE 20 MEQ/PKT PACKET PO ONE (17:00)
--- NOTE | 2020-03-09 17:51 | NUR ---
HD COMPLETED Received report from home appliance washing machine mechanic Foy. HD completed, 2.2L out. Vital signs stable: BP 143/68, Pulse 100, Temp 96.5 F. Pt tolerated well.
--- NOTE | 2020-03-09 18:55 | NUR ---
CLOSING NOTE Pt resting quietly in bed with no s/s resp distress, sporadic productive cough. Pt had medium sized soft BM, pt has condom cath yet had a lot of urine leakage. Pt cleaned up, moisture barrier cream applied to buttocks. Pt repositioned with pillow support and left heel off-loaded and right AKA stump off-loaded for skin care. Aspiration, isolation skin and safety precautions remain in place. Call light within reach.
[2020-03-09 19:45] VITALS: BP_SYST 173
--- NOTE | 2020-03-09 19:45 | NUR ---
initial notes: pt is awake, alert, oriented x2, no pain and not distress, no sob. sinus tach. at monitor. o2 sating to 96% at room air.. iv lock right upper arm midline and right ac gauge 20 intact and patent. reposition pt. covid isolation, safety precaution in place. will monitor.
[2020-03-09] MEDS: SENNOSIDES 8.6 MG TABLET PO SCH (21:00)
--- NOTE | 2020-03-09 22:00 | NUR ---
resting, wakes up and took all his medication. tolerate well. needs attended. will monitor.
[2020-03-09] MEDS: hydrALAZINE HCL 25 MG TABLET PO SCH (22:12)
[2020-03-09] MEDS: ATORVASTATIN 20 MG TABLET PO SCH (22:12)
--- NOTE | 2020-03-10 | NUR ---
pt is awake, alert, stable vital sign. no pain. needs attended. will monitor.
[2020-03-10 00:24] VITALS: BP_SYST 159
[2020-03-10] MEDS: PIPERACILLIN/TAZOBACTAM 2.25 GM in NS 50 ML IV SCH ×4 (00:24→18:19)
--- NOTE | 2020-03-10 02:12 | NUR ---
pt is sleeping, no sign of pain,no sob. stable on monitor. safety precaution in place. will monitor.
--- NOTE | 2020-03-10 04:15 | NUR ---
sleeping, comfortable. no sob, no pain, stable. sating 98% on monitor. safety precaution on. will monitor.
--- NOTE | 2020-03-10 06:00 | NUR ---
pt is awake. alert, blood sugar 84, soiled with bm, clean pt and linen, gown and chux change, reposition. needs attended. will monitor.
--- NOTE | 2020-03-10 07:20 | NUR ---
closing: pt is awake,alert.no pain,no sob. stable the whole shift. clean and dry.safety precaution in place. covid isolation. call light in reach.sbar report given to am rn.
[2020-03-10 07:32] LABS: ANION GAP 11 (5-15); CALCIUM 8.8 mg/dL (8.4-11.0); CHLORIDE 103 mmol/L (98-107); CREATININE 5.08 mg/dL (0.55-1.30); GLUCOSE 90 mg/dL (70-99); POTASSIUM 3.2 mmol/L (3.5-5.1); SODIUM SERUM 137 mmol/L (136-145); UREA NITROGEN, BLOOD 14 mg/dL (8-21)
[2020-03-10 08:00] VITALS: BP_SYST 133
--- NOTE | 2020-03-10 08:00 | NUR ---
Received report from NOC shift. Patient awake, on room air, SR on monitor. V/S stable. Patient is fed breakfast. No signs of aspiration noted.
[2020-03-10] MEDS: cycloSPORINE 0.05%, 0.4 ML OPHTHALMIC EMULSION DROPERETTE OP SCH (09:02)
[2020-03-10] MEDS: ASCORBIC ACID 500 MG TABLET PO SCH (09:02)
[2020-03-10] MEDS: POTASSIUM CHLORIDE 20 MEQ/PKT PACKET PO SCH (09:02)
[2020-03-10] MEDS: FAMOTIDINE 20 MG TABLET PO SCH (09:02)
[2020-03-10] MEDS: ASPIRIN 81 MG TABLET(ECOTRIN) PO SCH (09:02)
[2020-03-10] MEDS: SEVELAMER CARBONATE 800 MG TABLET PO SCH ×3 (09:02→17:00)
[2020-03-10] MEDS: CLOPIDOGREL BISULFATE 75 MG TABLET PO SCH (09:02)
[2020-03-10] MEDS: DOCUSATE SODIUM 100 MG CAPSULE PO SCH (09:02)
[2020-03-10] MEDS: ENOXAPARIN SODIUM 30 MG/0.3 ML SYRINGE SUBCUT SCH (09:03)
[2020-03-10] MEDS: BISACODYL 10 MG/SUPPOSITORY RC SCH (09:03)
--- NOTE | 2020-03-10 10:00 | NUR ---
Patient is at rest; no signs of distress noted.
--- NOTE | 2020-03-10 11:30 | NUR ---
BS 103. No coverage needed.
[2020-03-10 12:00] VITALS: BP_SYST 147
--- NOTE | 2020-03-10 12:43 | NUR ---
Patient refuses lunch despite encouragement from RN. Will monitor s/s of hypoglycemia such as tremors, dizziness, diaphoresis closely.
--- NOTE | 2020-03-10 14:28 | NUR ---
Central line dressing is changed. Patient tolerated without distress.
[2020-03-10 16:00] VITALS: BP_SYST 150
--- NOTE | 2020-03-10 17:30 | NUR ---
BS 83, but patient refuses to eat other than having a carton of apple juice despite RN's encouragement. Patient is cleaned after having a loose BM.
--- NOTE | 2020-03-10 18:41 | NUR ---
Patient remains A/Ox2 in covid isolation. SR on monitor. Instructed to use call light, which is at bedside, for needs. Will endorse to the incoming shift.
--- NOTE | 2020-03-10 19:25 | NUR ---
REPORT OBTAINED FROM DAY SHIFT NURSE. PT IS FULLY AWAKE, ALERT AND ORIENTED TO HIS NAME AND PLACE. SKIN IS WARM AND DRY TO TOUCH. NO SIGNS OR SYMPTOMS OF HYPOGLYCEMIA OR HYPERGLYCEMIA NOTED. PT IS ON ROOM AIR AND NO DIFFICULTY BREATHING NOTED. AMBER MIDLINE NOTED WITH THE DRESSING DRY AND INTACT. SALINE LOCK IN RFA IS WITHOUT ANY SIGNS OF INFILTRATION. FALL, SAFETY AND DROPLET ISOLATION PRECAUTIONS ARE IN PLACE.
[2020-03-10 20:00] VITALS: BP_SYST 159
[2020-03-10] MEDS: ATORVASTATIN 20 MG TABLET PO SCH (21:39)
[2020-03-10] MEDS: SENNOSIDES 8.6 MG TABLET PO SCH (21:39)
[2020-03-10] MEDS: hydrALAZINE HCL 25 MG TABLET PO SCH (21:39)
--- NOTE | 2020-03-10 21:39 | NUR ---
ACCUCHECK 96 AND SKIN REMAINS WARM AND DRY TO TOUCH. NO INSULIN COVERAGE NEEDED. PT ATE 1 CUP JELLO FOR HS SNACK.
--- NOTE | 2020-03-10 22:40 | NUR ---
PT INCONTINENT OF LARGE AMOUNT OF WATERY BROWNISH STOOL. RN AND NIB ASSEMBLER PROVIDED SRINIVAS/INCONTINENT CARE, INCLUDING BED BATH AND LINEN CHANGE.
[2020-03-11] VITALS: BP_SYST 149
[2020-03-11] MEDS: PIPERACILLIN/TAZOBACTAM 2.25 GM in NS 50 ML IV SCH ×4 (00:02→18:42)
--- NOTE | 2020-03-11 00:30 | NUR ---
PT IS SLEEPING WITHOUT ANY DISTRESS NOTED.
--- NOTE | 2020-03-11 02:30 | NUR ---
PT IS SLEEPING WITHOUT ANY RESPIRATORY DISTRESS NOTED. FALL, SAFETY AND DROPLET ISOLATION PRECAUTIONS ARE IN PLACE.
--- NOTE | 2020-03-11 04:30 | NUR ---
PT IS RESTING QUIETLY IN BED. NO ACUTE DISTRESS NOTED.
--- NOTE | 2020-03-11 06:33 | NUR ---
PT IS AWAKE AND NOT IN ANY DISTRESS. ACCUCHECK 84 AND NO INSULIN COVERAGE NEEDED. SKIN REMAINS WARM AND DRY TO TOUCH. SALINE LOCK IN RFA IS WITHOUT ANY SIGNS OF INFILTRATION. MIDLINE IN AMBER IS INTACT. FALL, SAFETY AND DROPLET ISOLATION PRECAUTIONS ARE IN PLACE. WILL ENDORSE TO DAY SHIFT NURSE.
--- NOTE | 2020-03-11 07:20 | NUR ---
A/Ox2 in covid isolation. SR on monitor. Instructed to use call light, which is at bedside, for needs. W
[2020-03-11 08:00] VITALS: BP_SYST 142
[2020-03-11] MEDS: ENOXAPARIN SODIUM 30 MG/0.3 ML SYRINGE SUBCUT SCH (08:32)
[2020-03-11] MEDS: DOCUSATE SODIUM 100 MG CAPSULE PO SCH (08:37)
[2020-03-11] MEDS: cycloSPORINE 0.05%, 0.4 ML OPHTHALMIC EMULSION DROPERETTE OP SCH (08:37)
[2020-03-11] MEDS: ASPIRIN 81 MG TABLET(ECOTRIN) PO SCH (08:37)
[2020-03-11] MEDS: CLOPIDOGREL BISULFATE 75 MG TABLET PO SCH (08:38)
[2020-03-11] MEDS: FAMOTIDINE 20 MG TABLET PO SCH (08:38)
[2020-03-11] MEDS: ASCORBIC ACID 500 MG TABLET PO SCH (08:38)
[2020-03-11] MEDS: POTASSIUM CHLORIDE 20 MEQ/PKT PACKET PO SCH (08:38)
[2020-03-11] MEDS: BISACODYL 10 MG/SUPPOSITORY RC SCH (09:00)
[2020-03-11] MEDS: SEVELAMER CARBONATE 800 MG TABLET PO SCH ×3 (09:00→17:00)
--- NOTE | 2020-03-11 09:48 | NUR ---
PATIENT IS FED BREAKFAST, BUT HE ONLY WANTS CEREAL WITH MILK DESPITE ENCOURAGEMENTS FROM RN. PATIENT ALSO HAD A BM; HE WAS CLEANED AND REPOSITIONED FOR COMFORT.
--- NOTE | 2020-03-11 12:00 | NUR ---
BLOOD SUGAR 126. NO COVERAGE NEEDED.
--- NOTE | 2020-03-11 14:25 | NUR ---
PATIENT CARE IS DELEGATED TO ELPIDIO LACEY. PATIENT IS IN NO DISTRESS AT THIS TIME.
[2020-03-11 15:49] VITALS: BP_SYST 144
--- NOTE | 2020-03-11 19:03 | NUR ---
closing notes, pt has been stable, no c/o of ain. vitals wnl. no fevel, pt kept on covid isolation. pt will have dialysis in am.
--- NOTE | 2020-03-11 19:15 | NUR ---
OPING NOTE REPORT RECEIVED FROM DAYSHIFT NURSE. PATIENT RECEIVED LYING IN BED, AWAKE, NO S/S OF ACUTE DISTRESS NOTED. BREATHING EVEN AND UNLABORED. HOB RAISED. IV SITE SHOWS NO SIGNS OF INFILTRATION OR INFECTION. CONDOM CATH ATTACHED, SECURED, AND DRAINING BY GRAVITY. SKIN WARM AND DRY TO TOUCH. CALL LIGHT WITH PATIENT. BED IS LOCKED AND AT LOWEST POSITION. WILL CONTINUE TO MONITOR.
[2020-03-11 20:00] VITALS: BP_SYST 137
--- NOTE | 2020-03-11 21:00 | NUR ---
ROUNDS PATIENT IN BED, NO SIGNS OF DISCOMFORT. DENIES PAIN. CHEST RISE AND FALL EVEN BILATERALLY. CALL LIGHT WITH PATIENT. WILL CONTINUE TO MONITOR.
[2020-03-11] MEDS: hydrALAZINE HCL 25 MG TABLET PO SCH (22:17)
[2020-03-11] MEDS: SENNOSIDES 8.6 MG TABLET PO SCH (22:17)
[2020-03-11] MEDS: ATORVASTATIN 20 MG TABLET PO SCH (22:17)
--- NOTE | 2020-03-11 23:00 | NUR ---
ROUNDS PATIENT ASLEEP, NO S/S OF ACUTE DISTRESS NOTED. BREATHING EVEN AND UNLABORED. CALL LIGHT WITH PATIENT. WILL CONTINUE TO MONITOR.
[2020-03-12] VITALS: BP_SYST 122
[2020-03-12] MEDS: PIPERACILLIN/TAZOBACTAM 2.25 GM in NS 50 ML IV SCH ×4 (00:27→17:52)
--- NOTE | 2020-03-12 01:00 | NUR ---
ROUNDS PATIENT SLEEPING AT THIS TIME. NO S/S OF ACUTE DISTRESS NOTED. BREATHING EVEN AND UNLABORED. WILL CONTINUE TO MONITOR.
--- NOTE | 2020-03-12 03:00 | NUR ---
ROUNDS PATIENT SLEEPING COMFORTABLY. NO S/S OF ACUTE DISTRESS. BREATHING EVEN AND UNLABORED. WILL CONTINUE TO MONITOR.
--- NOTE | 2020-03-12 05:00 | NUR ---
PERICARE/INCONTINENT CARE PATIENT CLEANED AT THIS TIME BY RN. PATIENT TOLERATED WELL. SACRAL DRESSING PLACED PER WOUND CARE ORDERS. NO S/S OF ACUTE DISTRESS NOTED. BREATHING EVEN AND UNLABORED. IV SITE IS PATENT, NO SIGNS OF INFILTRATION OR INFECTION NOTED. SKIN WARM AND DRY TO OUCH. SNACKS PROVIDED TO PATIENT. CONDOM CATH IN PLACE, SECURED, AND DRAINING BY GRAVITY. ALL NEEDS MET THROUGHOUT SHIFT. FALL, SAFETY, AND ISOLATION PRECAUTIONS MAINTAINED THROUGHOUT SHIFT. WILL CONTINUE TO MONITOR UNTIL PATIENT CARE IS ENDORSED TO ONCOMING DAYSHIFT NURSE.
--- NOTE | 2020-03-12 07:03 | NUR ---
CLOSING NOTE PATIENT IN BED, ASLEEP. NO S/S OF ACUTE DISTRESS NOTED. BREATHING EVEN AND UNLABORED. SKIN WARM AND DRY TO TOUCH. IV SITE PATENT, NO SIGNS OF INFILTRATION OR INFECTION NOTED. ALL NEEDS MET THROUGHOUT SHIFT. FALL, SAFETY, AND ISOLATION PRECAUTIONS MAINTAINED THROUGHOUT SHIFT. WILL CONTINUE TO MONITOR UNTIL PATIENT CARE IS ENDORSED TO ONCOMING DAYSHIFT NURSE.
--- NOTE | 2020-03-12 07:38 | NUR ---
Opening Note received SBAR report from overnight houseperson RN, patient resting in bed, respirations even and unlabored on room air, no acute distress noted, educated patient on use of call light and asked to call for assistance, call light in reach, bed in low and locked position, bed alarm on.
[2020-03-12 08:00] VITALS: BP_SYST 155
[2020-03-12] MEDS: SEVELAMER CARBONATE 800 MG TABLET PO SCH ×3 (08:42→17:52)
[2020-03-12] MEDS: BISACODYL 10 MG/SUPPOSITORY RC SCH (08:43)
[2020-03-12] MEDS: ENOXAPARIN SODIUM 30 MG/0.3 ML SYRINGE SUBCUT SCH (08:43)
[2020-03-12] MEDS: cycloSPORINE 0.05%, 0.4 ML OPHTHALMIC EMULSION DROPERETTE OP SCH (08:44)
[2020-03-12] MEDS: POTASSIUM CHLORIDE 20 MEQ/PKT PACKET PO SCH (08:44)
[2020-03-12] MEDS: ASCORBIC ACID 500 MG TABLET PO SCH (08:45)
[2020-03-12] MEDS: ASPIRIN 81 MG TABLET(ECOTRIN) PO SCH (08:45)
[2020-03-12] MEDS: DOCUSATE SODIUM 100 MG CAPSULE PO SCH (08:45)
[2020-03-12] MEDS: CLOPIDOGREL BISULFATE 75 MG TABLET PO SCH (08:45)
[2020-03-12] MEDS: FAMOTIDINE 20 MG TABLET PO SCH (08:48)
--- NOTE | 2020-03-12 11:45 | NUR ---
RN Rounds patient sitting up in bed eating lunch with assistance, PICC line to right upper arm clean, dry, and intact, no acute distress noted.
[2020-03-12 12:00] VITALS: BP_SYST 146
--- NOTE | 2020-03-12 13:20 | NUR ---
RN Rounds patient resting in bed, respirations even and unlabored on room air, no acute distress noted, patient denies any pain.
--- NOTE | 2020-03-12 13:34 | NUR ---
Nutrition F/U Admitting Diagnosis Sepsis and hypotension Medical History Comment: PMH: HTN, PAD, CKD/ESRD, HD, peripheral neuropathy, s/p R AKA, L great toe infection, necrosis, dry gangrene, DM type 2, HLD per physician notes Pt also found w/ poor PO intakes, severe malnutrition, COVID-19 PNA and CHF per physician notes Subjective Information RD placed phone call to pt's primary RN, and was answered by charge entry specialist. RD notified charge entry specialist about pt's current weight of 69#/ 31 kg. tow truck dispatcher to double check and update EMR. RD also place phone call to pt's room, no response. Per EMR, PO intake remains negligible <25% of estimated needs, abd is soft and nondistended, last BM 03/12 x2. ordered the addition of megace to pt's medication yesterday 03/11/2020. Current Diet Order/Nutrition Support Renal Standard with Honey Thick Liquids, Nepro BID x 7 days Patient/Significant Other Unable To Verbalize Education Provided Not Indicated Pertinent Medications colace, dulcolax suppository, VIT C, renvela, senna, SSI, megace, KCL packet, piepracillin/tazobactam, lovenox Pertinent Labs 03/12/ POC BG 75 WNL COVID-19 Positive 03/02/20 Skin Integrity Comment: Saúl scale: 13; Top Distribution Executive note 03/06/20: L great toe: dry gangrene Current % PO Negligible <25% Estimated Energy Expenditure (kcals/day) 2570-8463 kcal/day (30-35 kcal/kg Adj IBW for sepsis) Estimated Protein Required (g/day) 85-102 gm/day (1.25-1.5 gm/kg Adj IBW for sepsis, ESRD/HD, geriatric) Estimated Fluid Required (l/day) Per physician d/t renal Dz Problem/Etiology/Signs/Symptoms Suboptimal nutritional intakes related to possible lack of appetite as evidenced by negligible PO intake records and possible Hx of unintentional wt loss 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 *ongoing Expected Outcomes/Goals - Monitor appetite and PO intakes w/ goal of pt meeting at least 50% of estimated nutritional needs, labs trending WNL, normal GI function, and skin integrity/wt maintenance Dietitian Recommendations * Recommend continue renal diet w/ Nepro BID (ONS provides an additional 850 kcal/day, 38 gm protein/day) * Encourage increase PO intakes * Continue appetite stimulant. * Consider alternative nutrition support if negligible PO intake persists > 1 week. Follow Up High Risk: F/U in 2-3days
--- NOTE | 2020-03-12 13:46 | NUR ---
Dietitian Recommendations * Recommend continue renal diet w/ Nepro BID (ONS provides an additional 850 kcal/day, 38 gm protein/day) * Encourage increase PO intakes * Continue appetite stimulant. * Consider alternative nutrition support if negligible PO intake persists > 1 week. Please see Nutrition F/U note for details. PILO, RD
--- NOTE | 2020-03-12 15:55 | NUR ---
Hemodialysis field support representative starting dialysis, patient resting in bed, respirations even and unlabored, no acute distress noted, debarker operator at bedside.
[2020-03-12 16:00] VITALS: BP_SYST 112
--- NOTE | 2020-03-12 16:30 | NUR ---
Spoke with Physician spoke with Dr. Guzman, informed him that box press operator is at the bedside for hemodialysis, new heparin orders received, verified with read back.
[2020-03-12 16:45] LABS: BASOPHILS % (AUTO) 0.5 % (0.0-2.0); EOSINOPHILS % (AUTO) 0.3 % (0.0-4.0); HEMATOCRIT 27.4 % (36-54); HEMOGLOBIN 9.3 g/dL (14.0-18.0); LYMPHOCYTES # (AUTO) 1.1 K/uL (1.0-5.5); LYMPHOCYTES % (AUTO) 12.6 % (20.5-51.5); MEAN CORPUSCULAR HEMOGLOBIN 32 pg (27-31); MEAN CORPUSCULAR HGB CONC 34 % (32-36); MEAN CORPUSCULAR VOLUME 95 fL (79.0-98.0); MONOCYTES # (AUTO) 0.3 K/uL (0.0-1.0); MONOCYTES % (AUTO) 2.9 % (1.7-9.3); NEUTROPHILS # (AUTO) 7.3 K/uL (1.8-7.7); NEUTROPHILS % (AUTO) 83.7 % (40.0-70.0); PLATELET COUNT (AUTO) 217 K/uL (130-430); RED CELL DISTRIBUTION WIDTH 15.2 % (9.0-15.0); WHITE BLOOD COUNT (AUTO) 8.7 K/uL (4.8-10.8)
[2020-03-12] MEDS ORDERED: HEPARIN SODIUM,PORCINE 5000 UNITS/ML VIAL IV ONE (17:00)
[2020-03-12 17:01] LABS: ANION GAP 12 (5-15); CALCIUM 8.8 mg/dL (8.4-11.0); CHLORIDE 105 mmol/L (98-107); CREATININE 6.88 mg/dL (0.55-1.30); GLUCOSE 106 mg/dL (70-99); PHOSPHORUS 2.9 mg/dL (2.7-4.5); SODIUM SERUM 140 mmol/L (136-145); UREA NITROGEN, BLOOD 23 mg/dL (8-21)
[2020-03-12 17:16] LABS: POTASSIUM 2.1 mmol/L (3.5-5.1)
[2020-03-12 17:34] LABS: C-REACTIVE PROTEIN QUANT 19.2 mg/dL (0-0.5)
[2020-03-12 17:50] LABS: ERYTHROCYTE SEDIMENTATION RATE 87 MM/HR (0-15)
[2020-03-12] MEDS ORDERED: ALBUMIN HUMAN 25% 200 ML IV ONE (18:00)
[2020-03-12] MEDS ORDERED: COMMUNICATION ORDER XX ONE (18:00)
--- NOTE | 2020-03-12 18:46 | NUR ---
Hemodialysis log feeder completing hemodialysis, 1.4L out, patient resting in bed, no acute distress noted, respirations even and unlabored on room air, no bleeding noted from dialysis port to right subclavian chest.
[2020-03-12 18:48] VITALS: BP_SYST 108
--- NOTE | 2020-03-12 19:18 | NUR ---
Closing Note SBAR report given to receiving RN, patient resting in bed, respirations even and unlabored on room air, no acute distress noted, no bleeding noted from dialysis site, patient denies any pain, educated patient on use of call light and asked to call for assistance, patient verbalized understanding, call light in reach, bed in low and locked position, bed alarm on, care endorsed to maintenance supervisor 2nd shift RN.
--- NOTE | 2020-03-12 19:30 | NUR ---
OPENING NOTES RECEIVE REPORT FROM ELPIDIO LAWS, PATIENT AOX3. AWAKE AND FOLLOW ON COMMANDS. ON DIALYSIS AT THIS TIME, TOLERATING WELL. ON DIALYSIS SCHEDULE OF MWF. NO SIGNS OF RESPIRATORY DISTRESS AND DISCOMFORT NOTED. DENIES PAIN AND SOB. ON ROOM AIR TOLERATING WELL, O2 SATURATION OF 93%. CONDOM CATHETER, ATTACHED AND SECURED, MINIMAL DRAINAGE IS NOTED. AMBER PICC LINE NOTED, DRESSING CLEAN AND DRY. NO INFILTRATION NOTED. CALL LIGHT WITHIN REACH. PATIENT WAS EDUCATED TO USE CALL LIGHT WHEN ASSISTANCE IS NEEDED. PATIENT VERBALIZED UNDERSTANDING. BED LOCKED AND IN LOWEST. SAFETY PRECAUTIONS IN PLACE. WILL CONTINUE TO MONITOR PATIENT.
[2020-03-12 20:00] VITALS: BP_SYST 153
--- NOTE | 2020-03-12 20:15 | NUR ---
MED PASS/ SRINIVAS CARE DUE MEDICATION GIVEN AT THIS TIME. PATIENT TOLERATED WELL. PATIENT WAS EDUCATED ON MEDICATION THAT WAS TAKEN FOR ITS PURPOSE, SIDE EFFECT AND BENEFITS. PATIENT ABLE TO VERBALIZED UNDERSTANDING. SRINIVAS CARE DONE AT THIS TIME. PATIENT TOLERATED WELL. NEEDS ARE ATTENDED. REPOSITIONED FOR COMFORT. ON ROOM AIR TOLERATING WELL. CALL LIGHT WITHIN REACH. SAFETY PRECAUTIONS IN PLACE. WILL CONTINUE TO MONITOR PATIENT.
[2020-03-12] MEDS: ATORVASTATIN 20 MG TABLET PO SCH (21:00)
[2020-03-12] MEDS: SENNOSIDES 8.6 MG TABLET PO SCH (21:00)
[2020-03-12] MEDS: hydrALAZINE HCL 25 MG TABLET PO SCH (21:00)
--- NOTE | 2020-03-12 22:15 | NUR ---
RN ROUNDS PATIENT ASLEEP AT THIS TIME. NO SIGNS OF RESPIRATORY DISTRESS AND DISCOMFORT NOTED. BREATHING EVEN AND UNLABORED. ON ROOM AIR, TOLERATING WELL, O2 SATURATION OF 93%. CALL LIGHT WITHIN REACH. WAS REPOSITIONED FOR COMFORT. SAFETY PRECAUTIONS IN PLACE. WILL CONTINUE TO MONITOR PATIENT.
[2020-03-12] MEDS: INSULIN REGULAR, HUMAN 100 UNITS/ML, 10 ML VIAL (humuLIN R) SUBCUT PRN (22:39)
[2020-03-13] VITALS: BP_SYST 153
--- NOTE | 2020-03-13 00:34 | NUR ---
IV ANTIBIOTIC/ VITAL SIGNS DUE MEDICATION GIVEN AT THIS TIME VIA AMBER PICC LINE, PATENCY NOTED. PATIENT WAS EDUCATED ON MEDICATION THAT WAS GIVEN FOR ITS PURPOSE, SIDE EFFECT AND BENEFITS, PATIENT VERBALIZED UNDERSTANDING. VITAL SIGNS TAKEN AND RECORDED. PATIENT VERBALIZED ''FEELING BETTER''. PATIENT HAS NO SIGNS OF RESPIRATORY DISTRESS AND DISCOMFORT NOTED. BREATHING EVEN AND UNLABORED. ON ROOM AIR, TOLERATING WELL SATURATING AT 94%. REPOSITIONED FOR COMFORT. DENIES PAIN AT THIS TIME. CALL LIGHT WITHIN REACH. SAFETY PRECAUTIONS IN PLACE. WILL CONTINUE TO MONITOR PATIENT.
[2020-03-13] MEDS: PIPERACILLIN/TAZOBACTAM 2.25 GM in NS 50 ML IV SCH ×4 (00:55→19:02)
--- NOTE | 2020-03-13 02:50 | NUR ---
RN ROUNDS PATIENT ASLEEP AT THIS TIME. NO SIGNS OF RESPIRATORY DISTRESS AND DISCOMFORT NOTED. BREATHING EVEN AND UNLABORED. ON ROOM AIR, TOLERATING WELL, O2 SATURATION OF 97%. CALL LIGHT WITHIN REACH. REPOSITIONED FOR COMFORT. SAFETY PRECAUTIONS IN PLACE. WILL CONTINUE TO MONITOR PATIENT.
--- NOTE | 2020-03-13 04:10 | NUR ---
RN ROUNDS PATIENT ASLEEP AT THIS TIME. NO SIGNS OF RESPIRATORY DISTRESS AND DISCOMFORT NOTED. BREATHING EVEN AND UNLABORED. ON ROOM AIR, TOLERATING WELL, O2 SATURATION OF 95%. CALL LIGHT WITHIN REACH. REPOSITIONED FOR COMFORT. SAFETY PRECAUTIONS IN PLACE. WILL CONTINUE TO MONITOR PATIENT.
--- NOTE | 2020-03-13 04:58 | NUR ---
MD ROUNDS DR. SABILLON SEEN THE PATIENT. NO NEW ORDERS GIVEN AT THIS TIME.
--- NOTE | 2020-03-13 05:45 | NUR ---
SRINIVAS CARE/ WOUND CARE SRINIVAS CARE AND WOUND DRESSING DONE AT THIS TIME, PATIENT TOLERATED WELL. NO SIGNS OF RESPIRATORY DISTRESS NOTED. ON ROOM AIR, TOLERATING WELL. DENIES PAIN AND DISCOMFORT AT THIS TIME. REPOSITIONED FOR COMFORT. SAFETY PRECAUTIONS IN PLACE .WILL CONTINUE TO MONITOR PATIENT.
[2020-03-13 06:51] LABS: BASOPHILS % (AUTO) 0.2 % (0.0-2.0); EOSINOPHILS # (AUTO) 0.1 K/uL (0.0-0.4); EOSINOPHILS % (AUTO) 1.2 % (0.0-4.0); HEMATOCRIT 25.7 % (36-54); HEMOGLOBIN 8.8 g/dL (14.0-18.0); LYMPHOCYTES # (AUTO) 1.4 K/uL (1.0-5.5); LYMPHOCYTES % (AUTO) 13.8 % (20.5-51.5); MEAN CORPUSCULAR HEMOGLOBIN 32 pg (27-31); MEAN CORPUSCULAR HGB CONC 34 % (32-36); MEAN CORPUSCULAR VOLUME 93 fL (79.0-98.0); MONOCYTES # (AUTO) 0.3 K/uL (0.0-1.0); MONOCYTES % (AUTO) 2.8 % (1.7-9.3); NEUTROPHILS # (AUTO) 8.3 K/uL (1.8-7.7); PLATELET COUNT (AUTO) 224 K/uL (130-430); RED BLOOD CELL COUNT(AUTO) 2.76 MIL/uL (4.2-6.2); RED CELL DISTRIBUTION WIDTH 15.5 % (9.0-15.0); WHITE BLOOD COUNT (AUTO) 10.1 K/uL (4.8-10.8)
[2020-03-13] MEDS: INSULIN REGULAR, HUMAN 100 UNITS/ML, 10 ML VIAL (humuLIN R) SUBCUT PRN (07:02)
--- NOTE | 2020-03-13 07:03 | NUR ---
CLOSING NOTES/ BS 84 PATIENT AWAKE AOX3. ABLE TO FOLLOW ON COMMANDS. NO SIGNS OF RESPIRATORY DISTRESS AND DISCOMFORT NOTED. BREATHING EVEN AND UNLABORED. ON ROOM AIR, SATURATING AT 98%. CONDOM CATHETER, ATTACHED AND SECURED. MINIMAL DRAINAGE NOTED. AMBER PICC LINE NOTED WELL, DRESSING CLEAN AND DRY, PATENCY NOTED. RIGHT SUBCLAVIAN MITCH CATHETER INTACT, DRESSING CLEAN AND DRY. REPOSITIONED PATIENT FOR COMFORT. BS=84. NO COVERAGE NEEDED. BED LOCKED AND IN LOWEST POSITION. SAFETY PRECAUTIONS IN PLACE. ON ISOLATION AND FALL PRECAUTION. CALL LIGHT WITH IN REACH. SAFETY PRECAUTIONS IN PLACE. ALL NEEDS MET THROUGHOUT THE SHIFT. WILL CONTINUE TO MONITOR UNTIL ENDORSE ON TO ONCOMING SHIFT NURSE. FOR CONTINUITY OF CARE.
[2020-03-13 07:08] LABS: ANION GAP 13 (5-15); CALCIUM 9.1 mg/dL (8.4-11.0); CHLORIDE 101 mmol/L (98-107); CREATININE 5.36 mg/dL (0.55-1.30); GLUCOSE 82 mg/dL (70-99); PHOSPHORUS 2.1 mg/dL (2.7-4.5); SODIUM SERUM 137 mmol/L (136-145); UREA NITROGEN, BLOOD 15 mg/dL (8-21)
[2020-03-13 07:13] LABS: POTASSIUM 2.1 mmol/L (3.5-5.1)
[2020-03-13] MEDS ORDERED: POTASSIUM CHLORIDE 20 MEQ/PKT PACKET PO ONE ×2 (07:30→07:45)
--- NOTE | 2020-03-13 07:45 | NUR ---
Initial notes: Patient asleep, able to communicate verbally but did not open eyes. Gave him meds crushed with thick fluids. He took them without any problem. He is breathing well in RA, no signs of distress. IV site is patent and not running any fluids at this time. Patient is dry and does not need to be changed at this time, he has a condom cath that is somewhat loose. Fed patient his juice and his oatmeal this morning. He asked to have all the lights turned off so he could sleep. Patient was positive for COVID, he will remain in isolation precautions. Bed is low, locked, 2 side rails up and call light is within reach. Mariluz MAGALLANES
[2020-03-13 08:46] VITALS: BP_SYST 152
[2020-03-13] MEDS: DOCUSATE SODIUM 100 MG CAPSULE PO SCH (08:49)
[2020-03-13] MEDS: ASCORBIC ACID 500 MG TABLET PO SCH (08:49)
[2020-03-13] MEDS: ASPIRIN 81 MG TABLET(ECOTRIN) PO SCH (08:49)
[2020-03-13] MEDS: CLOPIDOGREL BISULFATE 75 MG TABLET PO SCH (08:49)
[2020-03-13] MEDS: cycloSPORINE 0.05%, 0.4 ML OPHTHALMIC EMULSION DROPERETTE OP SCH (08:49)
[2020-03-13] MEDS: SEVELAMER CARBONATE 800 MG TABLET PO SCH (08:49)
[2020-03-13] MEDS: POTASSIUM CHLORIDE 20 MEQ/PKT PACKET PO SCH (08:49)
[2020-03-13] MEDS: BISACODYL 10 MG/SUPPOSITORY RC SCH (08:49)
[2020-03-13] MEDS: FAMOTIDINE 20 MG TABLET PO SCH (08:49)
[2020-03-13] MEDS: ENOXAPARIN SODIUM 30 MG/0.3 ML SYRINGE SUBCUT SCH (08:50)
--- NOTE | 2020-03-13 10:13 | NUR ---
Patient is sleeping, will continue to monitor. Bed is low, locked, 2 side rails up and call light is within reach. Mariluz MAGALLANES
--- NOTE | 2020-03-13 12:19 | NUR ---
Tray was taken in to feed patient, he refused to eat but took his meds with juice. He was cleaned and gown changed along with pillow cases. IV meds were hung and sugar level were checked. No coverage was needed for the sugar levels. His bed is low, locked, 2 side rails are up and call light is within reach. Mariluz MAGALLANES
[2020-03-13] MEDS ORDERED: NACL 0.9% 1,000 ML IV SCH (13:45)
--- NOTE | 2020-03-13 14:12 | NUR ---
Patient is sleeping, he not showing any signs of distress and denies any pain. Bed is low, locked, 2 side rails are up and call light is within reach. Mariluz MAGALLANES
[2020-03-13 14:53] VITALS: BP_SYST 148
[2020-03-13 18:52] VITALS: BP_SYST 142
--- NOTE | 2020-03-13 18:54 | NUR ---
Closing notes: Patient was cleaned and changed. Sugars were checked and did not need any coverage. Patient is alert and oriented, asked to turn off the lights so he could sleep. IV meds were hung. He did not want to eat but drank some water. He is not in any kind of distress and denies any pain. I will give report to bricklayer paving brick nurse. Bed is low, locked, 2 side rails are up and call light is within reach. Mariluz MAGALLANES
--- NOTE | 2020-03-13 19:48 | NUR ---
Initial note: Received report from michael RN. Patient is awake in bed, no acute distress. Even, unlabored breathing on room air. AMBER midline dressing clean, dry, intact. Site saline locked. Fili cath to right upper chest present for HD. Old TEZ AV shunt present, not currently being used for HD. Condom cath in place with urine bag placed below patient level. Call light with patient. Safety, fall precautions in place. Isolation precautions in place for R/O COVID. Will continue with plan of care.
[2020-03-13] MEDS: hydrALAZINE HCL 25 MG TABLET PO SCH (20:53)
[2020-03-13] MEDS: DOXYCYCLINE HYCLATE 100 MG CAPSULE PO SCH (20:53)
[2020-03-13] MEDS: ATORVASTATIN 20 MG TABLET PO SCH (20:53)
[2020-03-13] MEDS: SENNOSIDES 8.6 MG TABLET PO SCH (20:57)
[2020-03-13 20:58] VITALS: BP_SYST 120
--- NOTE | 2020-03-13 21:04 | NUR ---
Blood sugar: Patient's bedside blood glucose is 75. SSI not indicated. Will continue monitoring.
[2020-03-14] VITALS: BP_SYST 110
--- NOTE | 2020-03-14 00:01 | NUR ---
Rounds: Patient is sleeping, no acute distress. Tolerating room air. Call light with patient. Will continue monitoring.
[2020-03-14] MEDS: PIPERACILLIN/TAZOBACTAM 2.25 GM in NS 50 ML IV SCH (00:56)
--- NOTE | 2020-03-14 03:11 | NUR ---
Dr. Ember Mojica: Spoke with MD over phone, made him aware regarding Zosyn order. MD stated no need to renew order.
--- NOTE | 2020-03-14 06:25 | NUR ---
Blood sugar: Patient's bedside blood glucose is 84. SSI not indicated. Will continue monitoring.
--- NOTE | 2020-03-14 06:48 | NUR ---
Closing note: Patient is resting in bed, no acute distress. Tolerating room air. AMBER midline line saline locked. Patient is bowel incontinent. Had a BM at this time, incontinence care rendered by this RN and ELPIDIO Khan. Patient tolerated well. New condom cath applied as previous one had become dislodged. 0 ML urine output entire shift, HD scheduled for today, supervisor vat house was made aware of order. All needs met. Will endorse care to dayshift RN.
[2020-03-14 07:16] LABS: BASOPHILS % (AUTO) 0.4 % (0.0-2.0); EOSINOPHILS # (AUTO) 0.1 K/uL (0.0-0.4); EOSINOPHILS % (AUTO) 0.8 % (0.0-4.0); HEMATOCRIT 30.8 % (36-54); HEMOGLOBIN 10.1 g/dL (14.0-18.0); LYMPHOCYTES # (AUTO) 1.5 K/uL (1.0-5.5); LYMPHOCYTES % (AUTO) 12.4 % (20.5-51.5); MEAN CORPUSCULAR HEMOGLOBIN 31 pg (27-31); MEAN CORPUSCULAR HGB CONC 33 % (32-36); MEAN CORPUSCULAR VOLUME 95 fL (79.0-98.0); MONOCYTES # (AUTO) 0.4 K/uL (0.0-1.0); MONOCYTES % (AUTO) 3.5 % (1.7-9.3); NEUTROPHILS # (AUTO) 10.2 K/uL (1.8-7.7); NEUTROPHILS % (AUTO) 82.9 % (40.0-70.0); PLATELET COUNT (AUTO) 262 K/uL (130-430); RED BLOOD CELL COUNT(AUTO) 3.25 MIL/uL (4.2-6.2); RED CELL DISTRIBUTION WIDTH 15.6 % (9.0-15.0); WHITE BLOOD COUNT (AUTO) 12.4 K/uL (4.8-10.8)
[2020-03-14 07:29] LABS: ALANINE AMINOTRANSFERASE 33 U/L (12-78); ANION GAP 16 (5-15); ASPARTATE AMINOTRANSFERASE 84 U/L (10-37); CALCIUM 9.6 mg/dL (8.4-11.0); CHLORIDE 105 mmol/L (98-107); CREATININE 6.93 mg/dL (0.55-1.30); GLUCOSE 93 mg/dL (70-99); SODIUM SERUM 144 mmol/L (136-145); TOTAL BILIRUBIN 0.7 mg/dL (0.0-1.0); UREA NITROGEN, BLOOD 19 mg/dL (8-21)
--- NOTE | 2020-03-14 07:30 | NUR ---
OPENING NOTE Patient resting in the bed. No acute distress. Denied of pain. Skin warm and dry to touch. Midline intact to AMBER, no redness, no swelling, patent, covered with clean and dry transparent dressing. Perma cath intact to right upper chest, no bleeding noted, covered with clean and dry dressing. Condom catheter intact, drain gravity. Isolation maintained. Safety measure maintained. Call light within reached. Bed locked in low position, side rails up, bed alarm on. Will continue to monitor.
[2020-03-14 07:35] LABS: POTASSIUM 2.2 mmol/L (3.5-5.1)
--- NOTE | 2020-03-14 07:58 | NUR ---
K=2.2 Called and reported to Stephanie Conde, patient's K=2.[address] Storm ordered potassium chloride 40mEq PO X 1, order read back and okay to .
[2020-03-14 08:00] VITALS: BP_SYST 154
[2020-03-14] MEDS ORDERED: POTASSIUM CHLORIDE 20 MEQ/PKT PACKET PO ONE (08:00)
--- NOTE | 2020-03-14 08:10 | NUR ---
PATIENT REFUSED AM SCHEDULE MED AT THIS TIME. WILL TRY LATER.
[2020-03-14] MEDS ORDERED: POTASSIUM CHLORIDE 20 MEQ/PKT PACKET ONE (08:21)
[2020-03-14] MEDS: BISACODYL 10 MG/SUPPOSITORY RC SCH (09:00)
--- NOTE | 2020-03-14 10:13 | NUR ---
ABG DRAWN BY RT
[2020-03-14] MEDS: DOCUSATE SODIUM 100 MG CAPSULE PO SCH (10:18)
[2020-03-14] MEDS: ASPIRIN 81 MG TABLET(ECOTRIN) PO SCH (10:18)
[2020-03-14] MEDS: cycloSPORINE 0.05%, 0.4 ML OPHTHALMIC EMULSION DROPERETTE OP SCH (10:18)
[2020-03-14] MEDS: FAMOTIDINE 20 MG TABLET PO SCH (10:18)
[2020-03-14] MEDS: POTASSIUM CHLORIDE 20 MEQ/PKT PACKET PO SCH (10:18)
[2020-03-14] MEDS: CLOPIDOGREL BISULFATE 75 MG TABLET PO SCH (10:18)
[2020-03-14] MEDS: ASCORBIC ACID 500 MG TABLET PO SCH (10:19)
[2020-03-14] MEDS: DOXYCYCLINE HYCLATE 100 MG CAPSULE PO SCH ×2 (10:19→21:00)
[2020-03-14] MEDS: ENOXAPARIN SODIUM 30 MG/0.3 ML SYRINGE SUBCUT SCH (10:20)
--- NOTE | 2020-03-14 10:20 | NUR ---
AM SCHEDULE MED GIVEN, TOLERATED WELL.
--- NOTE | 2020-03-14 11:35 | NUR ---
BS=97 No insulin needed per sliding scale. Patient resting in the bed. No acute distress. Condom cath intact. Safety measure maintained. Call light within reached. Bed locked in low position, side rails up, bed alarm on. Continue to monitor.
--- NOTE | 2020-03-14 11:39 | NUR ---
Case mgt: Case reviewed with Randi in CDS for LOS 12 days with GLOS=4 days--Pt Covid positive--having HD today--WBC increased to 12.4, K=2.2, cr 6.93, CXR=persistant RLL infiltrate per radiology--C-diff is pending--requires wound care from Jose superintendent of generation -Pt is from [facility] but may require LTAC--Nurse Marlena will ask Dr. Storm for LTAC evaluation order. WILFRID MAGALLANES
[2020-03-14 12:00] VITALS: BP_SYST 121
--- NOTE | 2020-03-14 12:28 | NUR ---
ABG RESULT REPORTED Called and reported to Stephanie Conde, the result of ABG: pH=7.424, pCO2=30.8, pO2=57.7, HCO3=19.7 YM2Ok=98.5, FCOHb=0.4, FHHb=11.8, BE=-3.8, sO2=88.1% in RA. Per RT placed the patient on O2 @ 2L/min via NC. O2 sat=94% on the monitor at this time. Dr. Storm with the order for O2 2L/min via NC. Also informed to Dr. Storm, per case liner the patient in hospital for 12 days which is off the bed hold from [facility], need the order for LTAC eval. Dr. Storm with order LTAC eval/[facility]. Orders read back and okay to
--- NOTE | 2020-03-14 13:52 | NUR ---
HEMODIALYSIS STARTED Patient resting in the bed. No acute distress. Continue on O2 2L/min via NC. Hemodialysis started, dialysis nurse at bedside. Safety measure maintained. Call light within reached. Isolation maintained. Continue to monitor.
--- NOTE | 2020-03-14 14:09 | NUR ---
Nutrition F/U Admitting Diagnosis: Sepsis and hypotension Medical History Comment: PMH: HTN, PAD, CKD/ESRD, HD, peripheral neuropathy, s/p R AKA, L great toe infection, necrosis, dry gangrene, DM type 2, HLD per physician notes Pt also found w/ poor PO intakes, severe malnutrition, COVID-19 PNA and CHF per physician notes Subjective Information RD placed phone call to pt's primary RN, no response x2. Pt remains w/ negligible to poor PO intake x 12 days now, w/ remeron to stimulate appetite and may benefit from supplemental TPN/PPN. Current diet will still be provided. Per EMR, BM 03/14 x1, pending C.diff and is having HD today. 03/14 CXR: persistent infiltrate. Current Diet Order/Nutrition Support: Renal Standard with Honey Thick Liquids, Nepro BID x 7 days Pertinent Medications: colace, dulcolax suppository, VIT C, remeron, senna, SSI, megace, KCL packet, lovenox Pertinent Labs: 03/14 Na 144 WNL, K 2.2L, BG 93WNL, POC BG 97WNL, BUN 19WNL, CRE 6.93H COVID-19 Positive 03/02/20 Skin Integrity Comment: Saúl scale: 13; Meter Maintenance Person note 03/06/20: L great toe: dry gangrene. 1+pitting edema to R arm per RN notes. 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 *ongoing Altered nutrition-related labs r/t renal function AEB elevated CRE lab values. (*new 03/14/2020) Expected Outcomes/Goals - Monitor provision of nutrition support, appetite and PO intakes w/ goal of pt meeting at least 50% of estimated nutritional needs, labs trending WNL, normal GI function, and skin integrity/wt maintenance Dietitian Recommendations * Recommend TPN/PPN. * Recommend continue renal diet w/ Nepro BID (ONS provides an additional 850 kcal/day, 38 gm protein/day) * Continue appetite stimulant. Follow Up High Risk: F/U in 2-3days Addendum: 03/14/20 at [address] Addendum: CINDY called 's number ([phone]) and was directed to [employer]. CINDY left a message and a/w 's call back [phone].
[2020-03-14] MEDS ORDERED: HEPARIN SODIUM,PORCINE 5000 UNITS/ML VIAL SUBCUT ONE (14:15)
[2020-03-14] MEDS ORDERED: ALBUMIN HUMAN 25% 200 ML IV ONE (14:15)
--- NOTE | 2020-03-14 14:17 | NUR ---
Dietitian Recommendations * Recommend TPN/PPN. * Recommend continue renal diet w/ Nepro BID (ONS provides an additional 850 kcal/day, 38 gm protein/day) * Continue appetite stimulant. Please see Nutrition F/U note for details. CINDY DAIGLE
[2020-03-14] MEDS ORDERED: HEPARIN SODIUM,PORCINE 5000 UNITS/ML VIAL ONE (14:22)
[2020-03-14] MEDS ORDERED: *PPN PER PHARMACY XX PRN (15:00)
--- NOTE | 2020-03-14 15:08 | NUR ---
Discharge Planning: DCP faxed patient referral to [facility] [place] ([phone] p [phone]) DCP{ to follow up
--- NOTE | 2020-03-14 15:45 | NUR ---
SEEN BY SAMANTHA YIN Dr. aware K=2.2 today, increased the order of potassium chloride from 20mEq to 40mEq Po daily start tomorrow.
--- NOTE | 2020-03-14 16:23 | NUR ---
LAURA WAYNE Talked to Dr. Mojica via phone regarding the COVID test. Per caser up the patient going to have LTAC eval and required the second COVID test. Dr. Mojica with order for COVID test.
--- NOTE | 2020-03-14 16:52 | NUR ---
HEMODIALYSIS COMPLETED Patient resting in the bed. Continue on O2 2L/min via NC. No acute distress. VS stable, VT=744/77. Hemodialysis completed with 1900ml out. Perma cath intact to right upper chest, no bleeding note, covered with clean and dry dressing. Safety measure maintained. Call light within reached. Bed locked in low position, side rails up, bed alarm on. Isolation maintained. Continue to monitor.
[2020-03-14 16:58] VITALS: BP_SYST 148
[2020-03-14] MEDS: EPOETIN ALFA 10,000 UNITS/ML VIAL SUBCUT SCH (18:09)
--- NOTE | 2020-03-14 18:45 | NUR ---
COVID SPECIMEN COLLECTED AND SENT TO LAB.
--- NOTE | 2020-03-14 18:51 | NUR ---
CLOSING NOTE Patient resting in the bed. No acute distress. Skin warm and dry to touch. Midline intact to AMBER, no redness, no swelling, patent, covered with clean and dry transparent dressing. Perma cath intact to right upper chest, no bleeding noted, covered with clean and dry dressing. Condom catheter intact, drain gravity. Isolation maintained. All needs met. Safety measure maintained. Call light within reached. Bed locked in low position, side rails up, bed alarm on. Will endorse to night nurse.
--- NOTE | 2020-03-14 19:25 | NUR ---
OPENING NOTES Patient is resting, no signs of acute respiratory distress, room air. Picc site patent, dressing c/d/i. Right knee elevated with a pillow, wound care provided at day shift. Condom cath in place, was endorsed that patient had had loose bowel movements, and dialysis was provided with 1.9 L out. Call light within reach, bed alarm on, bed at lowest position. Will continue to monitor.
[2020-03-14 20:00] VITALS: BP_SYST 136
[2020-03-14] MEDS ORDERED: MIRTAZAPINE 15 MG TABLET PO SCH (21:00)
[2020-03-14] MEDS: MIRTAZAPINE 15 MG TABLET PO SCH (21:00)
[2020-03-14] MEDS: hydrALAZINE HCL 25 MG TABLET PO SCH (21:00)
[2020-03-14] MEDS: ATORVASTATIN 20 MG TABLET PO SCH (21:00)
[2020-03-14] MEDS: SENNOSIDES 8.6 MG TABLET PO SCH (21:00)
[2020-03-15] VITALS: BP_SYST 118
--- NOTE | 2020-03-15 07:15 | NUR ---
CLOSING NOTES Patient is resting, no signs of acute respiratory distress, room air. Picc site patent, dressing c/d/i. Right knee elevated with a pillow, condom cath in place, incontinence care provided throughout shift. Call light within reach, bed alarm on, bed at lowest position. All needs met throughout shift. Will endorse care to oncoming shift.
--- NOTE | 2020-03-15 07:40 | NUR ---
OPENING NOTE Patient resting in the bed. No acute distress. Denied of pain. Skin warm and dry to touch. Midline intact to AMBER, no redness, no swelling, patent, covered with clean and dry transparent dressing. Perma cath intact to right upper chest, no bleeding noted, covered with clean and dry dressing. Condom catheter intact, drain gravity. On isolation. Safety measure maintained. Call light within reached. Bed locked in low position, side rails up, bed alarm on. Will continue to monitor.
[2020-03-15 08:00] VITALS: BP_SYST 146
[2020-03-15 08:25] LABS: BASOPHILS # (AUTO) 0.1 K/uL (0.0-0.2); BASOPHILS % (AUTO) 0.6 % (0.0-2.0); EOSINOPHILS # (AUTO) 0.1 K/uL (0.0-0.4); EOSINOPHILS % (AUTO) 0.9 % (0.0-4.0); HEMATOCRIT 31.7 % (36-54); HEMOGLOBIN 10.6 g/dL (14.0-18.0); LYMPHOCYTES # (AUTO) 1.3 K/uL (1.0-5.5); LYMPHOCYTES % (AUTO) 11.4 % (20.5-51.5); MEAN CORPUSCULAR HEMOGLOBIN 31 pg (27-31); MEAN CORPUSCULAR HGB CONC 33 % (32-36); MEAN CORPUSCULAR VOLUME 93 fL (79.0-98.0); MONOCYTES # (AUTO) 0.4 K/uL (0.0-1.0); MONOCYTES % (AUTO) 3.5 % (1.7-9.3); NEUTROPHILS # (AUTO) 9.8 K/uL (1.8-7.7); NEUTROPHILS % (AUTO) 83.6 % (40.0-70.0); PLATELET COUNT (AUTO) 274 K/uL (130-430); RED BLOOD CELL COUNT(AUTO) 3.41 MIL/uL (4.2-6.2); RED CELL DISTRIBUTION WIDTH 15.6 % (9.0-15.0); WHITE BLOOD COUNT (AUTO) 11.8 K/uL (4.8-10.8)
[2020-03-15 08:43] LABS: ANION GAP 11 (5-15); CALCIUM 10.3 mg/dL (8.4-11.0); CHLORIDE 100 mmol/L (98-107); CREATININE 4.73 mg/dL (0.55-1.30); GLUCOSE 138 mg/dL (70-99); PHOSPHORUS 1.8 mg/dL (2.7-4.5); SODIUM SERUM 137 mmol/L (136-145); TRIGLYCERIDES 193 mg/dL (30-150); UREA NITROGEN, BLOOD 13 mg/dL (8-21)
[2020-03-15] MEDS: DOCUSATE SODIUM 100 MG CAPSULE PO SCH (08:46)
[2020-03-15] MEDS: cycloSPORINE 0.05%, 0.4 ML OPHTHALMIC EMULSION DROPERETTE OP SCH (08:46)
[2020-03-15] MEDS: ASCORBIC ACID 500 MG TABLET PO SCH (08:47)
[2020-03-15] MEDS: CLOPIDOGREL BISULFATE 75 MG TABLET PO SCH (08:47)
[2020-03-15] MEDS: FAMOTIDINE 20 MG TABLET PO SCH (08:47)
[2020-03-15] MEDS: ASPIRIN 81 MG TABLET(ECOTRIN) PO SCH (08:48)
[2020-03-15] MEDS: ENOXAPARIN SODIUM 30 MG/0.3 ML SYRINGE SUBCUT SCH (08:48)
[2020-03-15] MEDS: BISACODYL 10 MG/SUPPOSITORY RC SCH (08:48)
[2020-03-15] MEDS: DOXYCYCLINE HYCLATE 100 MG CAPSULE PO SCH ×2 (08:48→20:35)
--- NOTE | 2020-03-15 08:48 | NUR ---
AM SCHEDULE MED GIVEN, TOLERATED WELL.
[2020-03-15 08:53] LABS: POTASSIUM 2.3 mmol/L (3.5-5.1)
[2020-03-15 08:57] LABS: C-REACTIVE PROTEIN QUANT 5.7 mg/dL (0-0.5)
[2020-03-15] MEDS ORDERED: IVERMECTIN 3 MG TABLET PO ONE (09:00)
[2020-03-15] MEDS ORDERED: POTASSIUM CHLORIDE 20 MEQ/PKT PACKET PO SCH (09:00)
[2020-03-15 09:04] LABS: ERYTHROCYTE SEDIMENTATION RATE 85 MM/HR (0-15)
--- NOTE | 2020-03-15 09:06 | NUR ---
K=2.3 Called and reported to Stephanie Conde for K=2.[address] Storm yesterday was 2.2, KCL 40mEq PO X 1 was ordered plus schedule KCL 20mEQ PO, total KCl 60mEq was given yesterday. Reported to Dr. Guzman when he came yesterday, he cincreased KCL from 20mEq to 40mEq daily. Dr. Storm with order to given KCl 20mEq x 1 PO at 1100. Order read back and okay to
--- NOTE | 2020-03-15 09:07 | NUR ---
ATTENDING MD DR IGLESIAS WAS CALLED DIRECTLY RE: CRITICAL K LEVEL 2.3.
--- NOTE | 2020-03-15 10:25 | NUR ---
HANDS OFF Report given to Cherry RN. Patient resting in the bed. No acute distress. On O2 2L?min via NC. Skin warm and dry to touch. Midline intact to AMBER, no redness, no swelling, patent. Condom catheter intact, drain gravity. Isolation maontained. Safety measure maintained. Call light within reached. Bed locked in low position, side rails up, bed alarm on. SBAR given to Cherry.
[2020-03-15] MEDS ORDERED: POTASSIUM CHLORIDE 20 MEQ/PKT PACKET PO ONE (11:00)
[2020-03-15] MEDS ORDERED: K PHOS 15 MM in NS 250 ML IV ONE (11:00)
--- NOTE | 2020-03-15 11:15 | NUR ---
DC PLANNING Received call from Chelsea @ [facility], ph [phone], will wait for results of 2nd Covid testing before submitting for approval, need 2 Covid testings done. Pt Covid + x1.
[2020-03-15 12:00] VITALS: BP_SYST 158
--- NOTE | 2020-03-15 12:00 | NUR ---
GLUCOSE MONITORING: BLOOD SUGAR ZYPEG=729, 2 UNITS REGULAR INSULIN GIVEN SQ, TOLERATED WELL, WILL CONT' WITH POC.
[2020-03-15] MEDS: INSULIN REGULAR, HUMAN 100 UNITS/ML, 10 ML VIAL (humuLIN R) SUBCUT PRN (13:47)
[2020-03-15] MEDS ORDERED: K PHOS 30 MM in NS 250 ML IV ONE (14:15)
[2020-03-15 16:00] VITALS: BP_SYST 126
--- NOTE | 2020-03-15 17:00 | NUR ---
GLUCOSE MONITORING: BLOOD SUGAR LEVEL=91, NO INSULIN REQUIRED AT THIS TIME, WILL CONT' WITH POC.
--- NOTE | 2020-03-15 19:35 | NUR ---
REPORT Report given by day nurse, patient resting quietly in bed, sinus rhythm in the heart monitor, 02 saturation of 96%.
[2020-03-15 20:00] VITALS: BP_SYST 126
[2020-03-15] MEDS: ATORVASTATIN 20 MG TABLET PO SCH (20:34)
[2020-03-15] MEDS: SENNOSIDES 8.6 MG TABLET PO SCH (20:34)
[2020-03-15] MEDS: MIRTAZAPINE 15 MG TABLET PO SCH (20:34)
[2020-03-15] MEDS: FAT EMULSIONS 250 ML IV SCH (20:36)
[2020-03-15] MEDS ORDERED: [UNRECOGNIZED DRUG - OTHER] IV SCH ×8 (21:00)
[2020-03-15] MEDS: hydrALAZINE HCL 25 MG TABLET PO SCH (21:00)
[2020-03-15] MEDS ORDERED: POTASSIUM CHLORIDE IV SCH ×8 (21:00)
[2020-03-15] MEDS ORDERED: SODIUM ACETATE IV SCH ×8 (21:00)
[2020-03-15] MEDS ORDERED: TPN PERIPHERAL IV SCH ×8 (21:00)
--- NOTE | 2020-03-15 21:40 | NUR ---
MED PASS Patient awake, in no distress, on 02 2L NC, vital signs stable, no facial grimacing noted for pain, due medications administered, crushed and given with jello, patient tolerated well, aspiration precautions maintained. Midline noted to right upper arm, TPN and lipids started. Patient repositioned with pillow support, safety and isolation precautions in place.
--- NOTE | 2020-03-16 00:09 | NUR ---
ROUNDS Patient resting quietly, breathing is even and unlabored, remains on 02 2L NC, vitals stable. Patient repositioned and turned with pillow support, left heel elevated with pillow support, safety precautions in place.
[2020-03-16 00:13] VITALS: BP_SYST 144
--- NOTE | 2020-03-16 02:08 | NUR ---
ROUNDS Patient resting quietly, breathing is even and unlabored, remains on 02 2L NC, repositioned and turned with pillow support, left heel elevated with pillow support, safety and isolation precautions in place.
--- NOTE | 2020-03-16 04:09 | NUR ---
ROUNDS Patient asleep, breathing is even and unlabored, remains on 02 2L NC, 02 sat of 98%, repositioned and turned with pillow support, left heel elevated with pillow support, safety and isolation precautions in place.
[2020-03-16] MEDS: INSULIN REGULAR, HUMAN 100 UNITS/ML, 10 ML VIAL (humuLIN R) SUBCUT PRN ×4 (05:34→22:50)
--- NOTE | 2020-03-16 05:40 | NUR ---
HYGIENE Patient had a bowel movement, incontinence care provided, dressing changed to sacral area, denuded area applied with z guard, applied sacral foam dressing, patient repositioned and turned and with pillow support, bilateral heels offloaded with pillow support.
--- NOTE | 2020-03-16 06:34 | NUR ---
CLOSING NOTE Patient resting quietly, remains on 02 2l NC, breathing is even and unlabored, blood sugar check this am of 176, covered with 2 units of regular insulin, midline intact and patent, TPN and lipids infusing, patient repositioned and turned with pillow support, left heel elevated with pillow support, safety and isolation precautions maintained, will continue to monitor until report given to am nurse.
--- NOTE | 2020-03-16 07:40 | NUR ---
INITIAL NOTE RECEIVED PT IN BED. NO S/S OF DISTRESS OR SOB NOTED, PT HAS NO FACIAL GRIMACING NOTED FOR PAIN. PT IN STABLE CONDITION. PT AAOX1, CONFUSED, PROVIDED PT WITH REALITY ORIENTATION. BED AT LOWEST POSITION, CALL LIGHT WITHIN REACH, WILL CONTINUE TO MONITOR PT FOR ANY CHANGES. FALL. SAFETY CONTACT AND ASPIRATION PRECAUTIONS IN PLACE. PT HAS AN IV CATHETER, CLEAN AND DRY, SALINE LOCK. PT HAS A RIGHT UPPER ARM, MIDLINE, NO SIGNS OF INFECTION OR INFILTRATION NOTED, RUNNING TPN AND LIPIDS ORDERED, HAS TWO PORTS AND BOTH FLUSH AND HAVE BLOOD. PT ON OXYGEN 2 LITERS VIA NASAL CANNULA SATURATION OF 98%.
[2020-03-16 08:30] VITALS: BP_SYST 128
[2020-03-16 08:46] LABS: BASOPHILS % (AUTO) 0.3 % (0.0-2.0); EOSINOPHILS # (AUTO) 0.1 K/uL (0.0-0.4); HEMATOCRIT 31.2 % (36-54); HEMOGLOBIN 10.4 g/dL (14.0-18.0); LYMPHOCYTES % (AUTO) 8.5 % (20.5-51.5); MEAN CORPUSCULAR HEMOGLOBIN 32 pg (27-31); MEAN CORPUSCULAR HGB CONC 33 % (32-36); MEAN CORPUSCULAR VOLUME 96 fL (79.0-98.0); MONOCYTES # (AUTO) 0.4 K/uL (0.0-1.0); NEUTROPHILS # (AUTO) 10.4 K/uL (1.8-7.7); NEUTROPHILS % (AUTO) 87.2 % (40.0-70.0); PLATELET COUNT (AUTO) 326 K/uL (130-430); RED BLOOD CELL COUNT(AUTO) 3.26 MIL/uL (4.2-6.2); WHITE BLOOD COUNT (AUTO) 11.9 K/uL (4.8-10.8)
[2020-03-16] MEDS: FAMOTIDINE 20 MG TABLET PO SCH (08:50)
[2020-03-16] MEDS: DOXYCYCLINE HYCLATE 100 MG CAPSULE PO SCH ×2 (08:50→21:36)
[2020-03-16] MEDS: cycloSPORINE 0.05%, 0.4 ML OPHTHALMIC EMULSION DROPERETTE OP SCH (08:50)
[2020-03-16] MEDS: CLOPIDOGREL BISULFATE 75 MG TABLET PO SCH (08:50)
[2020-03-16] MEDS: DOCUSATE SODIUM 100 MG CAPSULE PO SCH (08:50)
[2020-03-16] MEDS: ASPIRIN 81 MG TABLET(ECOTRIN) PO SCH (08:50)
[2020-03-16] MEDS: ASCORBIC ACID 500 MG TABLET PO SCH (08:51)
[2020-03-16] MEDS: BISACODYL 10 MG/SUPPOSITORY RC SCH (08:51)
[2020-03-16] MEDS: ENOXAPARIN SODIUM 30 MG/0.3 ML SYRINGE SUBCUT SCH (08:52)
[2020-03-16 08:56] LABS: ALANINE AMINOTRANSFERASE 43 U/L (12-78); ALBUMIN 2.6 g/dL (3.4-4.8); ANION GAP 11 (5-15); ASPARTATE AMINOTRANSFERASE 89 U/L (10-37); CALCIUM 10.2 mg/dL (8.4-11.0); CHLORIDE 105 mmol/L (98-107); CREATININE 6.11 mg/dL (0.55-1.30); GLUCOSE 178 mg/dL (70-99); PHOSPHORUS 1.6 mg/dL (2.7-4.5); SODIUM SERUM 140 mmol/L (136-145); TOTAL BILIRUBIN 0.6 mg/dL (0.0-1.0); UREA NITROGEN, BLOOD 22 mg/dL (8-21)
--- NOTE | 2020-03-16 10:30 | NUR ---
MD CALL SPOKE WITH DR IGLESIAS IN REGARDS TO PATIENTS CONDITION, MADE HIM AWARE THAT PT IS NOT EATING AND IS CONGESTED. PER MD ORDERED CT CHEST WITH OUT CONTRAST. MADE MD AWARE THAT PT IS ON TPN AND LIPIDS. NO OTHER ORDERS GIVEN.
--- NOTE | 2020-03-16 10:32 | NUR ---
ROUNDS PT IN BED, NO S/S OF DISTRESS OR SOB NOTED PT HAS NO C/O PAIN AT THIS TIME OR FACIAL GRIMACING NOTED FOR PAIN, PT IN STABLE CONDITION. PT RESTING COMFORTABLY, WILL CONTINUE TO MONITOR PT FOR ANY CHANGES.
[2020-03-16] MEDS ORDERED: K PHOS 15 MM in NS 250 ML IV ONE (11:00)
[2020-03-16 12:10] VITALS: BP_SYST 124
--- NOTE | 2020-03-16 14:22 | NUR ---
ROUNDS PT IN BED, NO S/S OF DISTRESS OR SOB NOTED PT HAS NO C/O PAIN AT THIS TIME OR FACIAL GRIMACING NOTED FOR PAIN, PT IN STABLE CONDITION. PT RESTING COMFORTABLY, WILL CONTINUE TO MONITOR PT FOR ANY CHANGES. PT CURRENTLY ON HEMODIALYSIS.
[2020-03-16] MEDS ORDERED: HEPARIN SODIUM,PORCINE 5000 UNITS/ML VIAL MC ONE (16:00)
[2020-03-16] MEDS ORDERED: COMMUNICATION ORDER XX ONE (16:00)
[2020-03-16 16:20] VITALS: BP_SYST 95
[2020-03-16] MEDS: EPOETIN ALFA 10,000 UNITS/ML VIAL SUBCUT SCH (16:45)
--- NOTE | 2020-03-16 18:31 | NUR ---
CLOSING NOTE PT IN BED. NO S/S OF DISTRESS OR SOB NOTED, PT HAS NO FACIAL GRIMACING NOTED FOR PAIN. PT IN STABLE CONDITION. PT AAOX1, CONFUSED, PROVIDED PT WITH REALITY ORIENTATION. BED AT LOWEST POSITION, CALL LIGHT WITHIN REACH, WILL ENDORSE CARE OF PT TO INCOMING NURSE. FALL. SAFETY CONTACT AND ASPIRATION PRECAUTIONS IN PLACE. PT HAS AN IV CATHETER, CLEAN AND DRY, SALINE LOCK. PT HAS A RIGHT UPPER ARM, MIDLINE, NO SIGNS OF INFECTION OR INFILTRATION NOTED, RUNNING TPN AND LIPIDS ORDERED, HAS TWO PORTS AND BOTH FLUSH AND HAVE BLOOD. PT ON OXYGEN 3 LITERS VIA NASAL CANNULA SATURATION OF 94%. NEEDS MET THROUGHOUT SHIFT. SPOKE WITH RADIOLOGY WILL COME AND ADOLESCENT COUNSELOR THE PT FOR CT OF THE CHEST TODAY.
--- NOTE | 2020-03-16 19:30 | NUR ---
CHANGE OF SHIFT; pt. awake, non verbal, able to nod his head , quite lethargic. O@ sat on low 80's. pt. on contact and droplet isolation for Covid 19. O2 at 4l/nc. on monitoring tech and shows sinus tach. on fall risk precautions. will assess more later.
--- NOTE | 2020-03-16 20:15 | NUR ---
NOTES: VS checked , BP on left forearm. on TPN?lipids via rt. upper arm, double lumen cath. saline lock on left antecubital. cardiac pattern on sinus tach. had hemodialysis today 1.2 liters out via rt. chest permacath. noted left AV shunt but not working.pt. has rt. BKA. O2 up to 5l/nc., O@ sat to 93%. occ. bouts of productive cough, suctioned orally with whitish mucus secretions. condom cath on but pt. anuric, falling off and removed. on contact isolation and droplet precaution for Covid 19. for further observation. pt. unable to use call light.
[2020-03-16 20:30] VITALS: BP_SYST 153
--- NOTE | 2020-03-16 20:30 | NUR ---
NOTES: called Dr. Storm about CT scan of chest if its ok to do in am, and said yes, nuclear medicine tech needs help in moving pt and no help tonight. made aware also of low O2 sat and up O2 to 5l/nc, asked if he could have a breathing treatment and he said no. continue to monitor.
[2020-03-16] MEDS: FAT EMULSIONS 250 ML IV SCH (21:00)
[2020-03-16] MEDS ORDERED: POTASSIUM CHLORIDE IV SCH ×8 (21:00)
[2020-03-16] MEDS ORDERED: [UNRECOGNIZED DRUG - OTHER] IV SCH ×8 (21:00)
[2020-03-16] MEDS ORDERED: SODIUM ACETATE IV SCH ×8 (21:00)
[2020-03-16] MEDS ORDERED: TPN PERIPHERAL IV SCH ×8 (21:00)
[2020-03-16] MEDS: SENNOSIDES 8.6 MG TABLET PO SCH (21:00)
[2020-03-16] MEDS: hydrALAZINE HCL 25 MG TABLET PO SCH (21:00)
--- NOTE | 2020-03-16 21:00 | NUR ---
NOTES: pt. had a large amts. of loose brown stool. kept clean, sacral wound with dressing intact. boo area reddened, Z alma applied. repositioned and turn to sides.
[2020-03-16] MEDS: MIRTAZAPINE 15 MG TABLET PO SCH (21:35)
[2020-03-16] MEDS: ATORVASTATIN 20 MG TABLET PO SCH (21:35)
--- NOTE | 2020-03-16 22:00 | NUR ---
NOTES: crushed meds and noted pocketing on his mouth, able to swallow some but slowly, suctioned when starts coughing. HOB elevated. IV TPN/Lipids bag changed at same rate.
[2020-03-17] VITALS (8 sets, daily range): BP systolic 57–139
--- NOTE | 2020-03-17 | NUR ---
NOTES: pt.O2 sat still on low 80's even increasing O2 to 5l/nc, pt. is a mouth breather, his mouth is always open. condition observed.
--- NOTE | 2020-03-17 00:10 | NUR ---
NOTES: called RT to change O2 to ventimask, placed on 40%. O2 sat went up 90%b, will continue to observe.
--- NOTE | 2020-03-17 01:00 | NUR ---
PT WAS INTUBATED @ 0055 WITH 7.5 ETT @ 22cm LIP LINE FOR SHALLOW RESPIRATIONS RATE 16 (POOR INSPIRATORY EFFORT). SPO2 = 82% ON 5 LPM NC. PT IS UNRESPONSIVE. POST INTUBATION BILAT B/S NOTED. CAPNOMETER +. POST CXR ADVANCED ETT 2cm FROM 22cm TO 24cm LIP LINE. PT TRANSFERRED TO ICU.
--- NOTE | 2020-03-17 01:00 | NUR ---
NOTES: pt. checked after midnight, barely responding, head slumped with shallow breathing. checked VS , BP 127/59 HR 125, O2 sat 70's. suctioned orally with thin whitish secretions. brent romero called@ 0036. RT came and brent romero team. pt. was intubated by PRICILA TORRES with 7.5 cm ETT and portable chest x ray for placement and [place] sump # 16 via rt. roscoe. Addendum: 03/17/20 at 0714 by April Diana RN late entry 03/17/20 Rapid response called @ 0036 instead of brent romero.
--- NOTE | 2020-03-17 01:40 | NUR ---
NOTES: pt. transferred to ICU room 5 intubated with RT and nursing surgical supervisor Rosaura.
--- NOTE | 2020-03-17 01:40 | NUR ---
TRANSFER Pt transferred to ICU-5 via bed. Pt orally intubated in Tele unit prior to arrival. Pt obtunded. Vent resumed once pt arrived to ICU-5. BP low, pulse weak, HR 125. PICC line present right upper arm.
--- NOTE | 2020-03-17 01:50 | NUR ---
DR LOY [place] notified regarding low BP and a weak pulse. Orders received. 1.Start Levophed drip to maintain SBP greater than 90. 2.Give liter bolus NS.
--- NOTE | 2020-03-17 01:50 | NUR ---
NOTES: called Dr. Storm about pt. condition and calling brent romero @ 0648, and transfer to ICU intubated. informed him pt. O2 sat has been on low 70-80's.
--- NOTE | 2020-03-17 01:51 | NUR ---
Called Dr. Emeterio Hinkle spoke to the doctor.
--- NOTE | 2020-03-17 02:00 | NUR ---
ACTIVITY Pt unable to tolerate turning, Pt with lower extremities elevated to help with BP support.
--- NOTE | 2020-03-17 02:01 | NUR ---
NOTES: report given to nurse Gray.
--- NOTE | 2020-03-17 02:17 | NUR ---
PAGED DR. STILES FOR ORDERS DIALED: [phone] SPOKE TO: AUTOMATED EXCHANGE
--- NOTE | 2020-03-17 02:20 | NUR ---
NOTES: called pt. sister Corry and informed her about pt. being transferred to ICU and been intubated for close care and observation.
[2020-03-17] MEDS ORDERED: NACL 0.9% 1,000 ML IV ONE ×2 (02:22→08:00)
[2020-03-17] MEDS ORDERED: NOREPINEPHRINE BITARTRATE 4 MG in NS 246 ML IV PRN (02:30)
[2020-03-17] MEDS ORDERED: NOREPINEPHRINE 4 MG/4 ML VIAL IV ONE (02:42)
--- NOTE | 2020-03-17 03:10 | NUR ---
PAGED DR. GRANADO FOR ORDERS DIALED: [phone] SPOKE TO: AUTOMATED EXCHANGE
--- NOTE | 2020-03-17 05:00 | NUR ---
DR RIDGE Mojica here.
[2020-03-17] MEDS ORDERED: PIPERACILLIN/TAZO 2.25G/DEX-IS 50 ML IV SCH (05:45)
[2020-03-17] MEDS ORDERED: VANCOMYCIN HCL 1 GM/NS PREMIX 250 ML IV ONE (06:00)
--- NOTE | 2020-03-17 07:00 | NUR ---
DR GO Jones here evaluating p.
--- NOTE | 2020-03-17 07:50 | NUR ---
AM ASSESSMENT. PT BEING SEEN BY DR STILES. PT OBTUNDED, EYES SLIGHTLY OPENED, MECHANICALLY INTUBATED, NEW ORDERS FROM GRID MOLDER RECEIVED. BLOOD PRESSURE UNABLE TO OBTAINED FROM LEFT FOREARM AND FROM LEFT LOWER LEG. LEVOPHED DRIP INFUSING AT 14 MCG/MIN. PPN AT 43 ML PER HR, LIPIDS AT 5 ML PER HR. ORAL SUCTIONING DONE, MODERATE SECRETIONS OBTAINED.
[2020-03-17] MEDS ORDERED: SODIUM BICARBONATE 8.4% JECT 50 MEQ/50 ML SYRINGE IVP ONE (08:00)
[2020-03-17] MEDS ORDERED: PHENYLEPHRINE HCL 30 MG in NS 247 ML IV PRN (08:00)
[2020-03-17] MEDS ORDERED: SODIUM BICARBONATE 8.4% JECT 50 MEQ/50 ML SYRINGE ONE (08:04)
[2020-03-17] MEDS ORDERED: ETOMIDATE 20 MG/ 10 ML VIAL (AMIDATE) IVP ONE (08:17)
[2020-03-17] MEDS ORDERED: SUCCINYLCHOLINE CHLORIDE 20 MG/ML(QUELICIN) IVP ONE (08:17)
[2020-03-17] MEDS: DOCUSATE SODIUM 100 MG CAPSULE PO SCH (08:40)
[2020-03-17] MEDS: CLOPIDOGREL BISULFATE 75 MG TABLET PO SCH (09:00)
[2020-03-17] MEDS: FAMOTIDINE 20 MG TABLET PO SCH (09:00)
[2020-03-17] MEDS: ENOXAPARIN SODIUM 30 MG/0.3 ML SYRINGE SUBCUT SCH (09:00)
[2020-03-17] MEDS: ASCORBIC ACID 500 MG TABLET PO SCH (09:00)
[2020-03-17] MEDS: ASPIRIN 81 MG TABLET(ECOTRIN) PO SCH (09:00)
[2020-03-17] MEDS: BISACODYL 10 MG/SUPPOSITORY RC SCH (09:00)
--- NOTE | 2020-03-17 09:00 | NUR ---
IV DRIPS. 1 LITER NS BOLUS STARTED AT [address] STILES. KENNY-SYNEPHRINE DRIP INITIATED AT 100 MCG/MIN, BLOOD PRESSURE SEEN 79/28. LEVOPHED TITRATED TO 10 MCG/MIN.
[2020-03-17 11:04] LABS: ALANINE AMINOTRANSFERASE 663 U/L (12-78); ALBUMIN 2.3 g/dL (3.4-4.8); ANION GAP 24 (5-15); ASPARTATE AMINOTRANSFERASE 1400 U/L (10-37); CALCIUM 9.9 mg/dL (8.4-11.0); CHLORIDE 103 mmol/L (98-107); CREATININE 4.37 mg/dL (0.55-1.30); GLUCOSE 133 mg/dL (70-99); LACTATE DEHYDROGENASE 3469 U/L (85-227); PHOSPHORUS 6.1 mg/dL (2.7-4.5); SODIUM SERUM 142 mmol/L (136-145); TOTAL BILIRUBIN 1.2 mg/dL (0.0-1.0); UREA NITROGEN, BLOOD 21 mg/dL (8-21)
--- NOTE | 2020-03-17 12:05 | NUR ---
NURSING. SUCTIONED PT ORALLY VIA YANKAUER, WITH MODERATE SECRETIONS OBTAINED. PT BOWEL INCONTINENT, ABOUT TO TURN PT TO HIS SIDE FOR HYGIENE BY 2 STAFF, PRESIDENT ALARMED NEVIN, CHECKED PT CAROTID AND RADIAL PULSE, UNPALPABLE, CHEST COMPRESSION BEGUN, CODE BLUE ANNOUNCED. DR STUBBS AND MEDICAL TEAM ARRIVED.
--- NOTE | 2020-03-17 12:25 | NUR ---
PT . BODY PRONOUNCED BY DR STUBBS, BLOOD PRESSURE AND HEAR RATE UNDETECTABLE, PUPILS FIXED AND DILATED, NO RESPONSE TO PAINFUL STIMULI.
[2020-03-17] MEDS ORDERED: ATROPINE SULFATE 1 MG/10 ML SYRINGE IVP ONE (12:28)
--- NOTE | 2020-03-17 12:36 | NUR ---
INFORMED KRISTI LOBBY RECEPIONIST RE: TIME OF 1225, PRONOUNCED BY DR STUBBS.
--- NOTE | 2020-03-17 12:42 | NUR ---
FOOD AND BEVERAGE MANAGER DR Lamont BRAUN ([facility]))AND SPOT BILLING CLERK DR STILES WERE INFORMED OF PT'S @ [phone].
--- NOTE | 2020-03-17 12:43 | NUR ---
FAMILY. CALLED UP PT'S DAUGHTER REBEKAH FOR NOTIFICATION OF .
--- NOTE | 2020-03-17 12:44 | NUR ---
ID MD DR HERVE SABILLON WAS SO INFORMED OF PT'S (SPOKE TO JERRY)
--- NOTE | 2020-03-17 13:00 | NUR ---
FAMILY. CALLED UP PT'S DAUGHTER AND SHE HAD HER SISTER BHUMI TO SPEAK THRU A CONFERENCE CALL. BHUMI NOBLES STATED THAT SHE WILL MAKE ARRANGEMENT TODAY. THE BODY MIGHT BE PICKED UP TODAY OR TOMORROW. SHE IS AWARE THAT THE BODY WILL BE MOVED TO A HOLDING ROOM THIS PM. THE PERSONAL EFFECT OF THE IS PLACED IN A PLASTIC BAG AND WILL BE KEPT IN THE SAFE (SECURITY).
--- NOTE | 2020-03-17 13:05 | NUR ---
Erika LUGO PHONED THE ONE [facility] OFFICE AND SPOKE TO STAR, SHE GAVE A REFERENCE NUMBER [id number].
[2020-03-17] MEDS ORDERED: EPINEPHrine JECT 0.1 MG/ML SYR IVP ONE (13:41)
[2020-03-17] MEDS ORDERED: HYDROCORTISONE SOD SUCC 100 MG/2 ML VIAL IVP SCH (14:00)
[2020-03-17] MEDS ORDERED: POTASSIUM ACETATE IV SCH ×6 (21:00)
[2020-03-17] MEDS ORDERED: SODIUM ACETATE IV SCH ×6 (21:00)
[2020-03-17] MEDS ORDERED: [UNRECOGNIZED DRUG - OTHER] IV SCH ×6 (21:00)
[2020-03-17] MEDS ORDERED: TPN PERIPHERAL IV SCH ×6 (21:00)
== END 2020-03-17 12:25 | disposition expired | DRG 871 ==
LOC: SED 01:12 → SIC 03:35 → EEVIPCON 03:35 → SIC 04:58 → SMU 03-03 18:00 → STU 03-03 20:49 → SIC 03-17 01:48
PROVIDERS: ADMIT Internal Medicine; ATTEND Internal Medicine
PROC: 5A1D70Z Performance of Urinary Filtration, Intermittent, Less than 6 Hours Per Day (ICD-10-PCS; 2020-03-02)
PROC: B54MZZA Ultrasonography of Right Upper Extremity Veins, Guidance (ICD-10-PCS; 2020-03-03)
PROC: 05HY33Z Insertion of Infusion Device into Upper Vein, Percutaneous Approach (ICD-10-PCS; 2020-03-03)
PROC: 5A1D70Z Performance of Urinary Filtration, Intermittent, Less than 6 Hours Per Day (ICD-10-PCS; 2020-03-05)
PROC: 5A1D70Z Performance of Urinary Filtration, Intermittent, Less than 6 Hours Per Day (ICD-10-PCS; 2020-03-07)
PROC: 5A1D70Z Performance of Urinary Filtration, Intermittent, Less than 6 Hours Per Day (ICD-10-PCS; 2020-03-09)
PROC: 5A1D70Z Performance of Urinary Filtration, Intermittent, Less than 6 Hours Per Day (ICD-10-PCS; 2020-03-12)
PROC: 5A1D70Z Performance of Urinary Filtration, Intermittent, Less than 6 Hours Per Day (ICD-10-PCS; 2020-03-14)
PROC: 5A1D70Z Performance of Urinary Filtration, Intermittent, Less than 6 Hours Per Day (ICD-10-PCS; 2020-03-16)
PROC: 0BH17EZ Insertion of Endotracheal Airway into Trachea, Via Natural or Artificial Opening (ICD-10-PCS; principal; 2020-03-17)
PROC: 5A1935Z Respiratory Ventilation, Less than 24 Consecutive Hours (ICD-10-PCS; 2020-03-17)
PROC: 5A12012 Performance of Cardiac Output, Single, Manual (ICD-10-PCS; 2020-03-17)
DX: A41.9 Sepsis, unspecified organism (principal); U07.1 COVID-19; R65.21 Severe sepsis with septic shock; N18.6 End stage renal disease; E43 Unspecified severe protein-calorie malnutrition; J12.89 Other viral pneumonia; J96.01 Acute respiratory failure with hypoxia; I12.0 Hypertensive chronic kidney disease with stage 5 chronic kidney disease or end stage renal disease; J91.8 Pleural effusion in other conditions classified elsewhere; E11.52 Type 2 diabetes mellitus with diabetic peripheral angiopathy with gangrene; D63.8 Anemia in other chronic diseases classified elsewhere; D89.9 Disorder involving the immune mechanism, unspecified; E11.22 Type 2 diabetes mellitus with diabetic chronic kidney disease; E11.42 Type 2 diabetes mellitus with diabetic polyneuropathy; E11.649 Type 2 diabetes mellitus with hypoglycemia without coma; E78.5 Hyperlipidemia, unspecified; E87.6 Hypokalemia; F17.200 Nicotine dependence, unspecified, uncomplicated; E87.8 Other disorders of electrolyte and fluid balance, not elsewhere classified; M19.90 Unspecified osteoarthritis, unspecified site; I25.10 Atherosclerotic heart disease of native coronary artery without angina pectoris; I46.9 Cardiac arrest, cause unspecified; Y95 Nosocomial condition; Z89.511 Acquired absence of right leg below knee; Z89.611 Acquired absence of right leg above knee; Z99.2 Dependence on renal dialysis; Z88.6 Allergy status to analgesic agent; Z88.8 Allergy status to other drugs, medicaments and biological substances; Z79.82 Long term (current) use of aspirin; Z79.4 Long term (current) use of insulin; Z79.899 Other long term (current) drug therapy; Z68.22 Body mass index [BMI] 22.0-22.9, adult
CPT/HCPCS: 36415; 36600; 71045; 80048; 80053; 80061; 80202-TC; 82728; 82803-TC; 82962; 83605; 83615-TC; 83690-TC; 83735-TC; 84100-TC; 84443-TC; 84478-TC; 84484; 85025; 85379; 85384-TC; 85610-TC; 85651-TC; 85730-TC; 86140; 87040-TC; 87070-TC; 87081; 87186-TC; 87205-TC; 87230-TC; 90935; 90937; 92950; 93005; 94002; 94640; 96361; 96365; 96366; 96367; 96375; 99291; C1751; J0171; J0330; J0461; J0885; J1644; J1650; J1815; J2370; J2543; J3370; J3475; J3480; J3490; J7030; J7050; J7060; P9046; U0002